=== PATIENT | female | born 2000 | race Caucasian/White ===

== ENCOUNTER 2019-06-25 14:30 | Emergency (ER) | payer OTHER, SELFPAY ==
[2019-06-25 14:37] VITALS: BP 124/76; PULSE 94; RESP 18; TEMP 36.3; O2SAT 100
[2019-06-25 15:19] LABS: Add Urine Microscopic? NO; Appearance Urine Clear (Clear); Bilirubin Urine Negative (Negative); Blood Urine Negative (Negative); Color Urine Yellow (Yellow); Glucose Urine UA Negative (Negative); Ketones Urine Negative (Negative); Leukocyte Esterase Ur Negative LEU/UL (Negative); Nitrate Urine Negative (Negative); Protein Urine Negative (Negative); Specific Grav Ur 1.024 (1.001-1.035); Urobilinogen Urine Negative mg/dL (<2.0)
--- NOTE | 2019-06-25 15:46 | ED.ABDPAIN ---
HPI - Abdominal Pain General Chief Complaint: Abdominal Pain Stated Complaint: abdominal pain Time Seen by Provider: 06/25/19 15:03 Source: patient Mode of arrival: ambulatory Limitations: no limitations History of Present Illness HPI narrative: Patient is a 18-year-old female who presents with abdominal bloating that is been present now for the last 2 days noting mild discomfort throughout the abdomen denies any fever chills nausea vomiting or other complaints and on arrival is resting comfortably in the room in no distress patient has not taken anything for her symptoms nor does she denies similar occurrence in the past. Related Data Allergies Allergy/AdvReac Type Severity Reaction Status Date / Time ceftriaxone [From Rocephin] Allergy Rash Verified 06/25/19 15:05 Cephalosporins Allergy Rash Verified 06/25/19 15:05 Review of Systems Review of Systems: All systems reviewed & are unremarkable except as noted in HPI and below PMFSH Social History Social History Gender identity (if verbalized by the patient): Female Exam Narrative: Exam Narrative: GENERAL: Well-appearing, well-nourished, and in no acute distress. HEAD: Normocephalic, atraumatic. EYES: PERRLA and EOMI. ENT: Nares clear, no rhinorrhea or epistaxis. Mucous membranes moist. CHEST: Clear to auscultation. No respiratory distress. No wheezes rales or rhonchi HEART: Regular rate and rhythm. No murmur heard. Normal peripheral pulses. ABDOMEN: Soft, suprapubic tenderness to palpation no rebound or guarding, nondistended EXTREMITIES: Normal range of motion. No edema. SKIN: Warm, dry, no rash. NEURO: No focal deficits. Alert and oriented x3. PSYCH: Normal mood and affect. Course Course Emergency Course: Patient in the room in no distress afebrile nontoxic-appearing without emesis felt appropriate for trial of outpatient medications provided with strict reasons to return Vital Signs Vital signs: Vital Signs Temperature 97.3 F L 06/25/19 14:37 Pulse Rate 94 06/25/19 14:37 Respiratory Rate 18 06/25/19 14:37 Blood Pressure 124/76 06/25/19 14:37 Pulse Oximetry 100 06/25/19 14:37 Temperature 97.3 F L 06/25/19 14:37 Pulse Rate 94 06/25/19 14:37 Respiratory Rate 18 06/25/19 14:37 Blood Pressure 124/76 06/25/19 14:37 Pulse Oximetry 100 06/25/19 14:37 MDM - Abdominal Pain MDM Narrative Medical decision making narrative: Patient in the room in no distress afebrile nontoxic-appearing no emesis felt appropriate for outpatient reevaluation agreeing to follow-up as directed or to return if symptoms worsen or concerns Lab Data Result diagrams: 06/25/19 15:34 06/25/19 15:34 Labs: Lab Results 06/25/19 06/25/19 06/25/19 Range/Units 15:08 15:34 15:34 WBC 10.2 H (4.5-10.0) K/mm3 RBC 4.80 (4.2-5.4) M/mm3 Hgb 14.6 (12.0-15.0) g/dL Hct 43.5 (37.0-47.0) % MCV 90.6 (80-100) fl MCH 30.4 (26-34) pg MCHC 33.6 (32-36) g/dl RDW 11.9 (11.5-14.5) % Plt Count 419 H (150-375) k/mm3 MPV 9.8 (7.4-10.4) fl Immature Gran % (Auto) 0.3 (0-0.5) % Neut % (Auto) 64.1 (45.5-73.1) % Lymph % (Auto) 26.9 (18.3-44.2) % Wolfe % (Auto) 6.3 (2.6-8.5) % Eos % (Auto) 1.9 (0-4.4) % Baso % (Auto) 0.5 (0.2-1.2) % Lymph # (Auto) 2.73 (0.9-3.2) K/mm3 Wolfe # (Auto) 0.6 (0.1-0.6) K/mm3 Eos # (Auto) 0.2 (0-0.3) K/mm3 Baso # (Auto) 0.1 (0.0-0.1) K/mm3 Abs Immat Gran (auto) 0.03 (0.00-0.031) K/mm3 Absolute Neuts (auto) 6.5 (1.3-6.7) K/mm3 Absolute Nucleated RBC 0.0 (0.0-0.012) K/mm3 Nucleated RBC % 0.0 (0.0-0.2) % Sodium 138 (137-145) mmol/L Potassium 4.3 (3.4-5.0) mmol/L Chloride 104 (98-107) mmol/L Carbon Dioxide 25 (22-30) mmol/L BUN 12 (7-17) mg/dL Creatinine 0.50 L (0.7-1.0) mg/dL Estim Creat Clear Calc 128 ml/min Estimated GFR
[2019-06-25 15:50] LABS: Basophils Absolute Auto 0.1 K/mm3 (0.0-0.1); Basophils Percent Auto 0.5 % (0.2-1.2); Eosinophils Absolute Auto 0.2 K/mm3 (0-0.3); Eosinophils Percent Auto 1.9 % (0-4.4); Hematocrit 43.5 % (37.0-47.0); Hemoglobin 14.6 g/dL (12.0-15.0); Immature Granulocyte Absolute 0.03 K/mm3 (0.00-0.031); Immature Granulocyte Percent A 0.3 % (0-0.5); Lymphocytes Absolute Auto 2.73 K/mm3 (0.9-3.2); Lymphocytes Percent Auto 26.9 % (18.3-44.2); Mean Corpuscular HGB Conc 33.6 g/dl (32-36); Mean Corpuscular Hemoglobin 30.4 pg (26-34); Mean Corpuscular Volume 90.6 fl (80-100); Mean Platelet Volume 9.8 fl (7.4-10.4); Monocytes Absolute Auto 0.6 K/mm3 (0.1-0.6); Monocytes Percent Auto 6.3 % (2.6-8.5); Neutrophils Absolute Auto 6.5 K/mm3 (1.3-6.7); Neutrophils Percent Auto 64.1 % (45.5-73.1); Platelet Count Result 419 k/mm3 (150-375); Red Cell Distribution Width 11.9 % (11.5-14.5); White Blood Count 10.2 K/mm3 (4.5-10.0)
[2019-06-25 15:57] LABS: Alanine Aminotransferase 17 U/L (4-35); Albumin Level 4.8 g/dL (3.5-5.1); Alkaline Phosphatase 75 U/L (38-126); Aspartate Amino Transferase 22 U/L (14-36); Bilirubin,Total 0.6 mg/dL (0.2-1.3); Blood Urea Nitrogen 12 mg/dL (7-17); Calcium 9.2 mg/dL (8.4-10.2); Carbon Dioxide 25 mmol/L (22-30); Chloride 104 mmol/L (98-107); Estimated CRCL calculation 128 ml/min; Estimated Glomerular Filt Rate > 60; Glucose 82 mg/dL (65-105); Lipase 78 U/L (23-300); Potassium 4.3 mmol/L (3.4-5.0); Sodium 138 mmol/L (137-145)
== END 2019-06-25 16:44 | disposition home or self-care (01) ==
PROVIDERS: Emergency Medicine Emergency Medical Services; Emergency Provider Emergency Medicine
DX: R10.30 Lower abdominal pain, unspecified (principal)
CPT/HCPCS: 36415; 80053; 81003; 81025; 83690; 85025; 99283

== ENCOUNTER 2019-09-27 01:36 | Emergency (ER) | payer OTHER, SELFPAY ==
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
[2019-09-27 01:44] VITALS: BP 132/74; PULSE 88; RESP 17; TEMP 36.5; O2SAT 98
[2019-09-27 02:44] LABS: Basophils Absolute Auto 0.1 K/mm3 (0.0-0.1); Basophils Percent Auto 0.4 % (0.2-1.2); Eosinophils Absolute Auto 0.2 K/mm3 (0-0.3); Eosinophils Percent Auto 1.3 % (0-4.4); Hematocrit 39.4 % (37.0-47.0); Hemoglobin 13.6 g/dL (12.0-15.0); Immature Granulocyte Absolute 0.05 K/mm3 (0.00-0.031); Immature Granulocyte Percent A 0.4 % (0-0.5); Lymphocytes Percent Auto 27.1 % (18.3-44.2); Mean Corpuscular HGB Conc 34.5 g/dl (32-36); Mean Corpuscular Hemoglobin 30.6 pg (26-34); Mean Corpuscular Volume 88.7 fl (80-100); Mean Platelet Volume 9.7 fl (7.4-10.4); Monocytes Absolute Auto 0.9 K/mm3 (0.1-0.6); Monocytes Percent Auto 6.4 % (2.6-8.5); Neutrophils Absolute Auto 8.8 K/mm3 (1.3-6.7); Neutrophils Percent Auto 64.4 % (45.5-73.1); Platelet Count Result 360 k/mm3 (150-375); Red Blood Count 4.44 M/mm3 (4.2-5.4); Red Cell Distribution Width 12.3 % (11.5-14.5); White Blood Count 13.7 K/mm3 (4.5-10.0)
[2019-09-27 02:56] LABS: Alanine Aminotransferase 18 U/L (4-35); Albumin Level 4.5 g/dL (3.5-5.1); Alkaline Phosphatase 86 U/L (38-126); Aspartate Amino Transferase 22 U/L (14-36); Bilirubin,Total 0.4 mg/dL (0.2-1.3); Blood Urea Nitrogen 15 mg/dL (7-17); Calcium 9.1 mg/dL (8.4-10.2); Carbon Dioxide 27 mmol/L (22-30); Chloride 104 mmol/L (98-107); Estimated CRCL calculation 95 ml/min; Estimated Glomerular Filt Rate > 60; Glucose 101 mg/dL (65-105); Lipase 78 U/L (23-300); Potassium 3.8 mmol/L (3.4-5.0); Sodium 138 mmol/L (137-145)
[2019-09-27 03:08] LABS: Add Urine Microscopic? YES; Appearance Urine Cloudy (Clear); Bilirubin Urine Negative (Negative); Blood Urine 3+ (Negative); Color Urine Yellow (Yellow); Glucose Urine UA Negative (Negative); Ketones Urine Negative (Negative); Leukocyte Esterase Ur 3+ LEU/UL (Negative); Mucus Urine Rare /lpf; Nitrate Urine Negative (Negative); Protein Urine Negative (Negative); Specific Grav Ur 1.025 (1.001-1.035); Squamous Epithelial Cell Urine Few /hpf (Few); Urobilinogen Urine Negative mg/dL (<2.0); WBC Urine >75 /hpf
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
[2019-09-27 03:55] VITALS: BP 129/63; PULSE 74; RESP 16; TEMP 36.6; O2SAT 99
== END 2019-09-27 03:57 | disposition home or self-care (01) ==
PROVIDERS: Emergency Provider Emergency Medicine
DX: N39.0 Urinary tract infection, site not specified (principal); S30.811A Abrasion of abdominal wall, initial encounter; V47.0XXA Car driver injured in collision with fixed or stationary object in nontraffic accident, initial encounter
CPT/HCPCS: 36415; 74177; 80053; 81001; 81025; 83690; 85025; 87086; 87088; 99284; Q9967

== ENCOUNTER 2020-08-18 22:26 | Emergency (ER) | payer OTHER, SELFPAY ==
[2020-08-18 22:37] VITALS: BP 135/84; PULSE 78; RESP 18; TEMP 36.4; O2SAT 100
--- NOTE | 2020-08-18 23:38 | PC.NURSE ---
Pt ambulatory to ED c/o burning and frequency c urination. also c/o lynch and dizziness that is fairly constant. has IUD - paraguard in place. c/o vaginal cramping as well. has scullion chief but has not talked to them about symptoms/concerns.
[2020-08-18 23:44] LABS: Glucose Point of Care 77 (65-105)
[2020-08-18 23:47] LABS: Add Urine Microscopic? YES; Appearance Urine Cloudy (Clear); Bacteria Urine Trace /hpf; Bilirubin Urine Negative (Negative); Blood Urine Negative (Negative); Color Urine Straw (Yellow); Glucose Urine UA Negative (Negative); Ketones Urine Negative (Negative); Leukocyte Esterase Ur 1+ LEU/UL (Negative); Mucus Urine Rare /lpf; Nitrate Urine Negative (Negative); Protein Urine 2+ mg/dL (Negative); Squamous Epithelial Cell Urine Few /hpf (Few); Urobilinogen Urine Negative mg/dL (<2.0); WBC Urine 21-30 /hpf
--- NOTE | 2020-08-19 00:02 | ED.GENADULT ---
HPI - General Adult General Chief complaint: Urogenital-Female Stated complaint: possible UTI, headache Time Seen by Provider: 08/18/20 23:32 History of Present Illness HPI narrative: Patient 27-year-old female who presents emerged from with chief complaint of dysuria. Patient reports for the last several days has had burning frequency with urination. Patient also reports she has had a headache reports this feels unwell. Patient states that she has not had any nausea or vomiting fevers. Patient states she had some cramping throughout the abdomen and in her flank area. Related Data Allergies Allergy/AdvReac Type Severity Reaction Status Date / Time ceftriaxone [From Rocephin] Allergy Rash Verified 08/18/20 22:40 Cephalosporins Allergy Rash Verified 08/18/20 22:40 Review of Systems Review of Systems: Narrative: A 10 system review of systems was completed on the patient and is negative except for what is stated in the HPI. Nursing and ancillary documentation was reviewed. PMFSH Past Medical History Medical History Healthy female adult Surgical History Surgical History No pertinent past surgical history Social History Social History Smoking status: Never smoker Gender identity (if verbalized by the patient): Female Exam Narrative: Exam Narrative: GENERAL: Well-appearing, well-nourished, and in no acute distress. HEAD: Normocephalic, atraumatic. EYES: PERRLA and EOMI. ENT: Nares clear, no rhinorrhea or epistaxis. Mucous membranes moist. NECK: Supple. CHEST: Clear to auscultation. No respiratory distress. HEART: Regular rate and rhythm. No murmur heard. Normal peripheral pulses. ABDOMEN: Soft, nontender, nondistended, normal active bowel sounds. EXTREMITIES: Normal range of motion. No edema. SKIN: Warm, dry, no rash. NEURO: No focal deficits. Alert and oriented x3. PSYCH: Normal mood and affect. Course Vital Signs Vital signs: Vital Signs Temperature 36.4 C L 08/18/20 22:37 Pulse Rate 78 08/18/20 22:37 Respiratory Rate 18 08/18/20 22:37 Blood Pressure 135/84 08/18/20 22:37 Pulse Oximetry 100 08/18/20 22:37 Temperature 36.4 C L 08/18/20 22:37 Pulse Rate 78 08/18/20 22:37 Respiratory Rate 18 08/18/20 22:37 Blood Pressure 135/84 08/18/20 22:37 Pulse Oximetry 100 08/18/20 22:37 Medical Decision Making Vital Signs Vital Signs: Vital Signs Temperature 36.4 C L 08/18/20 22:37 Pulse Rate 78 08/18/20 22:37 Respiratory Rate 18 08/18/20 22:37 Blood Pressure 135/84 08/18/20 22:37 Pulse Oximetry 100 08/18/20 22:37 Temperature 36.4 C L 08/18/20 22:37 Pulse Rate 78 08/18/20 22:37 Respiratory Rate 18 08/18/20 22:37 Blood Pressure 135/84 08/18/20 22:37 Pulse Oximetry 100 08/18/20 22:37 Lab Data Labs: Lab Results 08/18/20 08/18/20 Range/Units 23:31 23:41 POC Capillary Glucose 77 (65-105) mg/dl Urine Color Straw (Yellow) Urine Appearance Cloudy H (Clear) Urine pH 7.0 (5.0-9.0) Ur Specific [place] 1.010 (1.001-1.035) Urine Protein 2+ H (Negative) mg/dL Urine Glucose (UA) Negative (Negative) mg/dL Urine Ketones Negative (Negative) mg/dL Ur Blood (Man) Negative (Negative) Urine Nitrate Negative (Negative) Urine Bilirubin Negative (Negative) Urine Urobilinogen Negative (<2.0) mg/dL Leukocyte Esterase Rfl 1+ H (Negative) JAY/UL Urine RBC 3-5 H (0-2) /hpf Urine WBC 21-30 H /hpf Ur Squamous Epith Cells Few (Few) /hpf Urine Bacteria Trace /hpf Urine Mucus Rare /lpf UCG Bedside Result Negative Reference Range: Negative Urine Characteristics Clear Dis
[2020-08-19 00:25] VITALS: BP 125/87; PULSE 82; RESP 20; O2SAT 100
== END 2020-08-19 00:26 | disposition home or self-care (01) ==
PROVIDERS: Emergency Provider Emergency Medicine
DX: N39.0 Urinary tract infection, site not specified (principal)
CPT/HCPCS: 81001; 81025; 82948; 87077; 87086; 87088; 99283

== ENCOUNTER 2023-06-20 15:25 | Emergency (ER) | payer OTHER, SELFPAY ==
[2023-06-20 15:47] VITALS: BP 132/88; PULSE 138; RESP 19; TEMP 36.7; O2SAT 100
--- NOTE | 2023-06-20 15:51 | ED.URI ---
HPI - URI/Sore Throat General Chief Complaint: Upper Respiratory Infection Stated Complaint: fever, sore throat Time Seen by Provider: 06/20/23 15:50 History of Present Illness HPI Narrative: Patient is a healthy 22-year-old female here with nasal congestion and sore throat. She states her symptoms began yesterday. She has been using ibuprofen [id number] for symptoms, last dose taken this morning. She denies any urinary symptoms, shortness of breath, cough. She has pain with swallowing but no difficulty breathing or swallowing. Her daughter is sick with strep pharyngitis and believes that maybe she got strep throat from her older daughter. She is also here with her younger daughter for similar symptoms. Related Data Allergies Allergy/AdvReac Type Severity Reaction Status Date / Time ceftriaxone [From Rocephin] Allergy Rash Verified 08/18/20 22:40 Cephalosporins Allergy Rash Verified 08/18/20 22:40 Review of Systems Review of Systems: All systems reviewed & are unremarkable except as noted in HPI and below PMFSH Past Medical History Medical History Healthy female adult Surgical History Surgical History No pertinent past surgical history Social History Social History Smoking status: Never smoker Gender identity (if verbalized by the patient): Female Exam Narrative: GENERAL: Well-appearing, well-nourished, and in no acute distress. HEAD: Normocephalic, atraumatic. EYES: PERRLA and EOMI. ENT: Nares clear. Mucous membranes moist. Erythema in the posterior pharynx with mild bilateral exudates, mild tonsillar swelling bilaterally. NECK: Supple. No lymphadenopathy CHEST: Clear to auscultation. No respiratory distress. HEART: Tachycardic. Normal peripheral pulses. ABDOMEN: Soft, nontender, nondistended. EXTREMITIES: Normal range of motion. No edema. SKIN: Warm, dry, no rash. NEURO: No focal deficits. Alert and oriented x3. PSYCH: Normal mood and affect. Course Course Emergency Course: Chart review performed. Patient here with respiratory infection. Triage vitals show tachycardia, otherwise normal. She has had a couple of visits in the past few years for abdominal pain, UTI. Patient seen evaluated, nontoxic appearing. Alert, oriented. Concern for viral syndrome versus strep pharyngitis. Viral swab, strep swab, test ordered. Will give Tylenol and Decadron for symptom relief. Will push oral hydration and recheck HR. Patient positive for strep, she has cephalosporin allergy, will start on azithromycin. She has downtrending HR to 125, will do additional oral fluids and reevaluate. Anticipate some of her continued tachycardia is anxiety over the fact that her daughter is being transferred to the [facility]. Will recheck heart rate after oral fluids. Patient's heart rate improved to 111. I did discuss that I would like to do additional hydration and watch her but longer in the emergency department however her daughter is currently being transferred to [facility] and she would like to leave. Advised continued hydration at home and continued antibiotic use. The results of pertinent diagnostic studies and exam findings were discussed. The patient?s provisional diagnosis and plan of care were discussed with the patient and present family. The patient and/or present family expressed understanding of the diagnosis and plan. The nurse was instructed to provide written instructions and appropriate follow-up information. The patient understands their need and responsibility to obtain additional follow-up as instructed. The risks of medications administered and prescribed were discussed with the patient and family present. Vital Signs Vital signs: Vital Signs Temperature 98.1 F 06/20/23 15:47 Pulse
[2023-06-20] MEDS: dexAMETHasone SOD PHOS INJ 10 MG/ML 1 ML VIAL BY MOUTH (16:58)
[2023-06-20] MEDS: ACETAMINOPHEN 325 MG TABLET 650 MG PO (16:58)
[2023-06-20 17:06] LABS: Strep Group A RT-PCR DETECTED (Negative)
[2023-06-20 17:18] LABS: Influenza A QL RT-PCR Negative (Negative); Influenza B QL RT-PCR Negative (Negative); RSV RNA, RT-PCR Negative (Negative); SARS-CoV-2 RNA PCR Negative (Negative)
[2023-06-20 17:31] VITALS: BP 136/92; PULSE 125; O2SAT 100
[2023-06-20 17:33] VITALS: O2SAT 97
[2023-06-20] MEDS: AZITHROMYCIN 250 MG TABLET 500 MG PO (18:25)
[2023-06-20 18:41] VITALS: BP 136/121; PULSE 124; RESP 18; O2SAT 100
[2023-06-20] MEDS: IBUPROFEN 600 MG TABLET PO (19:06)
[2023-06-20 19:09] VITALS: PULSE 111; RESP 19; O2SAT 100
[2023-06-20 19:14] VITALS: BP 141/87; PULSE 99; RESP 18; O2SAT 100
== END 2023-06-20 19:22 | disposition home or self-care (01) ==
PROVIDERS: Emergency Provider Student in an Organized Health Care Education/Training Program
DX: J02.0 Streptococcal pharyngitis (principal); Z20.822 Contact with and (suspected) exposure to COVID-19
CPT/HCPCS: 81025; 87637; 87651; 99283; A9270; J1100

== ENCOUNTER 2023-11-28 17:09 | Emergency (ER) | payer MEDICAID, SELFPAY ==
[2023-11-28 17:55] VITALS: BP 139/90; PULSE 99; RESP 15; TEMP 37.2; O2SAT 98
[2023-11-28 22:55] VITALS: BP 137/84; PULSE 92; RESP 19; TEMP 36.9; O2SAT 100
--- NOTE | 2023-11-29 01:48 | ED.SKABFB ---
HPI - Skin/Abscess/Foreign Bdy General Chief complaint: Skin/Abscess/Foreign Body Stated complaint: bump outside vagina Time Seen by Provider: 11/28/23 23:40 Source: patient Mode of arrival: ambulatory Limitations: no limitations History of Present Illness HPI narrative: patient is a 23-year-old female who presents the ED with report of an abnormal lump on her left labia. Patient reports she noticed a lump a few days ago, but states it has become increasingly painful. She has had similar lumps in the past, but states they have not typically been this painful. She has not taken anything for the pain. She is currently , approximately [address] Gan. Has appt in early December. patient states the raised area has been draining clear fluid. She denies any fevers. Denies abdominal pain or vaginal bleeding. Related Data Allergies Allergy/AdvReac Type Severity Reaction Status Date / Time ceftriaxone [From Rocephin] Allergy Rash Verified 08/18/20 22:40 Cephalosporins Allergy Rash Verified 08/18/20 22:40 Review of Systems Review of Systems: All systems reviewed & are unremarkable except as noted in HPI. All systems reviewed & are unremarkable except as noted in HPI and below PMFSH Past Medical History Medical History Healthy female adult Surgical History Surgical History No pertinent past surgical history Social History Social History Smoking status: Never smoker Gender identity (if verbalized by the patient): Female Exam Narrative: GENERAL: Well appearing, well-nourished, non-toxic, in no acute distress. HEAD: Normocephalic, atraumatic. RESPIRATORY: Airway patent, respirations nonlabored CARDIOVASCULAR: Regular rate and rhythm PELVIC: Raised erythematous area to left labial majora, with cluster of small ulcers. A few of the ulcers have been scabbed over. Focal TTP. No fluctuance or surrounding induration/erythema. Remainder of external genitalia is unremarkable. MUSCULOSKELETAL: Moves all extremities. No gross deformities. SKIN: Warm, dry, normal color. NEURO: A&O X3. Speech clear. PSYCHIATRIC: Appropriate mood and affect. Normal interaction. Course Vital Signs Vital signs: Vital Signs Temperature 99.0 F 11/28/23 17:55 Pulse Rate 99 11/28/23 17:55 Respiratory Rate 15 11/28/23 17:55 Blood Pressure 139/90 11/28/23 17:55 Pulse Oximetry 98 11/28/23 17:55 Temperature 98.1 F 11/29/23 02:36 Pulse Rate 90 11/29/23 02:36 Respiratory Rate 18 11/29/23 02:36 Blood Pressure 132/79 11/29/23 02:36 Pulse Oximetry 99 11/29/23 02:36 MDM - Skin/Abscess/Foreign Bdy MDM Narrative Medical decision making narrative: exam consistent with genital herpes. No evidence of abscess. I did utilize bedside ultrasound to ensure no superficial fluid collection. Bedside ultrasound was also utilized to visualize baby. Positive movement with positive heart flicker. Patient does report history of genital HSV. She has previously been on antiviral therapy with her previous pregnancies. Will start patient on valacyclovir. Discussed pain management, Sitz bath, Tylenol, ice pack. Advised close follow-up with OBGYN for further evaluation. She was given return precautions and voiced understanding. In agreement with plan. Discharged in stable condition. Medical Records Attestation: I reviewed the patient's medical records. Discharge Plan Discharge Clinical Impression: Genital herpes affecting in first trimester, 8 weeks gestation of Patient Disposition: Home, Self-Care Condition: Stable Instructions: Antibiotic Form, Genital Herpes Infection (ED), Sitz Bath (DC), at 7 to 10 Weeks (ED) Additional Instructions: Take
[2023-11-29 02:36] VITALS: BP 132/79; PULSE 90; RESP 18; TEMP 36.7; O2SAT 99
== END 2023-11-29 02:38 | disposition home or self-care (01) ==
PROVIDERS: Emergency Provider Physician Assistant
DX: O98.511 Other viral diseases complicating pregnancy, first trimester (principal); A60.04 Herpesviral vulvovaginitis; Z3A.08 8 weeks gestation of pregnancy
CPT/HCPCS: 99283

== ENCOUNTER 2024-03-11 23:20 | Observation (INO) | payer MEDICAID, SELFPAY ==
[2024-03-11 23:49] VITALS: BP 130/77; PULSE 69; O2SAT 99
[2024-03-11 23:54] VITALS: PULSE 70; O2SAT 100
[2024-03-11 23:59] VITALS: PULSE 67; O2SAT 98
[2024-03-12] VITALS (18 sets, daily range): BP systolic 121–133; BP diastolic 71–82; PULSE 66–91; TEMP 36.6; O2SAT 96–100; BMI 35.3
--- NOTE | 2024-03-12 00:05 | OBADM ---
This patient, Nitza Jason, admitted to the OB room OB Post 116 for observation. Patient/family oriented to hospital policies and general routines including ID bracelet, bed and alarms, visiting hours, pain management, procedures, bathroom and other care routines, personal items, smoking policy, room service/diet, and visiting hours. Patient/Family are encouraged to report perceived risks to care and to ask questions if they do not understand what they are told or what they should do.
[2024-03-12 00:09] LABS: Add Urine Microscopic? NO; Appearance Urine Clear (Clear); Bilirubin Urine Negative (Negative); Blood Urine Negative (Negative); Color Urine Yellow (Yellow); Glucose Urine UA Negative (Negative); Ketones Urine Negative (Negative); Leukocyte Esterase Ur Negative LEU/UL (Negative); Nitrate Urine Negative (Negative); Protein Urine Negative (Negative); Specific Grav Ur 1.012 (1.001-1.035); Urobilinogen Urine 0.2 mg/dL (<2.0)
== END 2024-03-12 01:17 | disposition home or self-care (01) ==
PROVIDERS: Admitting Provider Obstetrics & Gynecology; Visit Provider Obstetrics & Gynecology
DX: O26.892 Other specified pregnancy related conditions, second trimester (principal); R10.9 Unspecified abdominal pain; Z3A.23 23 weeks gestation of pregnancy
CPT/HCPCS: 59025; 81003; G0378; G0379

== ENCOUNTER 2024-04-19 08:48 | Outpatient (RCR) | payer OTHER, SELFPAY ==
[2024-04-18 13:49] LABS: Hematocrit 35.5 % (37.0-47.0); Hemoglobin 11.8 g/dL (12.0-15.0)
[2024-04-18 14:01] LABS: Glucose 1 Hour PP 50gm Dose 149 mg/dL
[2024-04-18 14:41] LABS: HIV 1/2 Ab P24 Ag Result Negative (Negative)
[2024-04-19] MEDS: RHO(D) IMMUNE GLOBULIN 300 MCG/2 ML SYRINGE IM (10:17)
== END 2024-04-19 09:00 | disposition home or self-care (01) ==
LOC: ANHLAB 08:48
PROVIDERS: Visit Provider Obstetrics & Gynecology
DX: Z11.4 Encounter for screening for human immunodeficiency virus [HIV] (principal); Z11.3 Encounter for screening for infections with a predominantly sexual mode of transmission; Z29.13 Encounter for prophylactic Rho(D) immune globulin; O36.0130 Maternal care for anti-D [Rh] antibodies, third trimester, not applicable or unspecified; Z3A.00 Weeks of gestation of pregnancy not specified
CPT/HCPCS: 36415; 82947; 85014; 85018; 85461; 86703; 86850; 86900; 86901; 90384; 96372; G0432; J2790

== ENCOUNTER 2024-05-28 14:36 | Outpatient (CLI) | payer OTHER, SELFPAY ==
[2024-05-28] VITALS (7 sets, daily range): BP systolic 124–136; BP diastolic 80–89; PULSE 84–101; RESP 18; TEMP 37.2; BMI 39.2
--- OUTSIDE RECORDS SUMMARY | 2024-05-28 14:42 | XMS_ITS | CONTINUITY OF CARE DOCUMENT ---
Author Name mojgan ulrich Address Unknown Organization [facility] Address [address] [place] [address] Phone [phone] Care Team Providers Care Surgical Nurse Practitioner Name Role Phone Darrell NATARAJAN, Constantin Unavailable JL IVY MD Unavailable JL IVY MD Unavailable [phone] INSURANCE PROVIDERS Payer name Policy type / Coverage type Juan red [employer] party ID [employer] MEDICAID (2) Medicaid [id number]
--- OUTSIDE RECORDS SUMMARY | 2024-05-28 14:42 | XMS_ITS | Clinical Summary ---
Author Organization [facility] Address [address] [place] [address] Care Team Providers Care Glue Specialty Supervisor Name Role Phone Unavailable Primary Care Provider Unavailabl e Source Comments [facility],non-owned Affiliates and Associated Physician Practices is amultiple site organization consisting of ambulatory clinics and hospital sitesin [place], [place], [place] and [place]. This disclosure is being madepursuant to the Care Everywhere program and may not contain all information available regarding this patient. Last updated 17.[facility] Allergies Active Allergy Reactions Criticality Noted Date Comments Cephalosporins Rash Medium 07/07/2019 Ceftriaxone Rash Medium 12/22/2017 Medications * Be aware that medications may not be up to date on this document. Alwaysverify current medications with the patient. Medication Sig Dispensed Refills Start Date End Date Status montelukast (SINGULAIR) 10 MG tablet Take 10 mg by mouth at bedtime Active acyclovir (ZOVIRAX) 800 MG tablet Take 800 mg by mouth once daily Active methylPREDNISolone (MEDROL DOSEPAK) 4 MG tablet Take by mouth as directed 1 Each 07/07/2019 Active Active Problems Problem Noted Date Diagnosed Date Poor growth affecting management of mother in third trimester 08/27/2018 Social History Tobacco Use Types Packs/Day Years Used Date Smoking Tobacco: Passive Smo ke Exposure - Never Smoker Smokeless Tobacco: Never Sex and Gender Information Value Date Recorded Sex Assigned at Not on file Gender Identity Not on file Sexual Orientation Not on file Last Filed Vital Signs Vital Sign Reading Time Taken Comments Blood Pressure 127/77 09/21/2018 2:34 PM CDT Pulse 96 07/07/2019 2:27 PM CDT Temperature 37.1 C (98.7 F) 07/07/2019 2:27 PM CDT Respiratory Rate 18 07/07/2019 2:27 PM CDT Oxygen Saturation 98% 07/07/2019 2:27 PM CDT Inhaled Oxygen Concentration - - Weight 62.6 kg (138 lb) 07/07/2019 2:27 PM CDT Height 153.7 cm (5' 0.5 ) 07/07/2019 2:27 PM CDT Body Mass Index 26.51 07/07/2019 2:27 PM CDT Plan of Treatment Health Maintenance Due Date Last Done Comments PAP SMEAR 2000 HIV SCREENING 2013 HPV VACCINE (1 - 3-dose series) 2013 CHLAMYDIA/GONORRHEA SCREENING 2014 HEPATITIS C SCREENING 10/06/2016 DTAP/TDAP/TD VACCINES (1 - Tdap) 2017 HEPATITIS B VACCINE (1 of 3 - 19+ 3-dose series) 2017 COVID-19 VACCINE ( - 2023-2 5 season) 2023 INFLUENZA VACCINE (#1) 2023 DEPRESSION SCREENING 04/06/2024 ZOSTER VACCINE (1 of 2) 2048 HIB VACCINE Aged Out No longer eligi ble based on patient's age to complete this topic MENINGOCOCCAL (Group B) VACCINE Aged Out No longer eligible based on patient's age to complete this topic MENINGOCOCCAL VACCINE Aged Out No adalberto danie eligible based on patient's age to complete this topic PNEUMOCOCCAL VACCINE Aged Out No long er eligible based on patient's age to complete this topic CASIENITZA Personal/Family [address] [place] [id number] Casie Nitza Personal/Family Self [address] [place] [id number]
--- OUTSIDE RECORDS SUMMARY | 2024-05-28 14:42 | XMS_ITS | Data Portability ---
Author Organization [facility] [place] Address [address] [place] [place] [place] [address] Assessment Encounter Date Assessment Date Assessment LastModified by Organization Details LastModified Time 05/05/2024 05/05/2024 Patient is ___weeks . Discussed plan. Not available 05/05/2024 12:35:22 05/12/2024 05/12/2024 Patient is ___weeks . Discussed plan. Not available 05/12/2024 12:57:57 05/26/2024 05/26/2024 Patient is ___weeks . Discussed plan. Not available 05/26/2024 11:28:03 Plan of Treatment Reminders Order Date Submit Date Provider Last Modified By Organization Details Last Modified Time Details Appointments U/S OB GROWTH 2024 11:00A M ULTRASOUND Not available Not available Not available OB ROUTINE 2024 11:45A M Ale CLOUD MD Not available Not available Not available Lab None recorde d. Referral None recorde d. Procedures None recorde d. Surgeries None recorde d. Imaging US, obstetr ic, follow- up 2024 025 [email or web address] [place], [address], [address], [place], [address], 05/12/2024 19:35:34 Medication Orders None recorde d. Patient TargetsNo targets recorded. Patient InstructionsNo instructions recorded. Reason for Referral None Reported. Results Created Date Observation Date Name Description Value Unit Range Abnormal Flag Note LastModifiedBy Organization Detail LastModifiedTime 04/21/19 25 04/21/2024 GTT - GESTA JESUS L, 3 HOUR, ACOG glucose, fasting acog 81 mg/dL 70-94 Not Available [facility] (Lab) [address] [place], [address], 04/22/2024 13:19:52 04/21/19 25 04/21/2024 GTT - GESTA JESUS L, 3 HOUR, ACOG glucose, 1 hour acog 162 mg/dL 70-179 Not Available [facility] (Lab) [address] [place], [address], 04/22/2024 13:19:52 04/21/19 25 04/21/2024 GTT - GESTA JESUS L, 3 HOUR, ACOG glucose, 2 hour acog 136 mg/dL 70-154 Not Available [facility] (Lab) [address] [place], [address], 04/22/2024 13:19:52 04/21/19 25 04/21/2024 GTT - GESTA JESUS L, 3 HOUR, ACOG glucose, 3 hour acog 77 mg/dL 70-139 Not Available [facility] (Lab) [address] [place], [address], 04/22/2024 13:19:52 04/21/19 25 04/21/2024 RPR SCREE N, REFLE X TITER /CONF IRMAT ION RPR screen Nonrea ctive nonrea ctive Not Available [facility] (Lab) [address] [place], [address], 04/22/2024 13:19:52 05/12/19 25 05/12/2024 US, luis f perezo w-up No observ ation record ed. [email or web address] [address], [facility], [place], [address], 05/12/2024 18:42:35 05/12/19 25 05/12/2024 US, obste tric, follo w-up No observ ation record ed. [email or web address] [place] [address], [place], [address], 05/12/2024 18:35:54 Result Notes None recorded. Problems Name Problem SNOMED Code Status Onset Date Resolution Date Notes Provider Name and Address Organization Details Recorded Time 07218357 Active 2023 Sandy Wu stacey, [facility] 4 13:20:57 Herpes simplex 90329794 Active outbreak at 8 weeks gestation in this pregancy, patient is on supressiv e therapy, acyclovir 1000 Antolin Cloud MD [address], [place], [address], [facility] 4 13:31:34 growth restricti on 75593618 Active previous pregnacy Antolin Cloud MD [address], [place], [address], [facility] 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 4 16:52:33 Palpitati ons 57071006 Active Antolin Cloud MD [address], [place], [address], [facility] 4 12:49:18 Postpartu m depressio n 87016883 Active H/O Antolin Cloud MD [address], [place], [address], [facility] 4 12:49:46 Placenta circumval remi 7010764 Active Antolin Cloud MD [address], [place], [address], [facility] 4 13:10:24 Asthma 913361918 Active Antolin Cloud MD [address], [place], [address], [place] [facility] 13:06:41 Problem Notes None recorded. Procedures Surgical History Date Name Laterality Status Provider Name and Address Organization Details Recorded Time 01/04/2024 Date of Last Pap Smear completed Leny Espinoza [facility] 02/22/2024 12:44:22 Imaging Results Imaging Date Name Status LastModified by Organiz ation Details LastModified Time 05/12/2024 US, obstetric, follow-up active [email or web address] [address], [place], [address], 05/12/2024 18:42:35 05/12/2024 US, obstetric, follow-up completed [email or web address] [place] [address], [place], [address], 05/12/2024 18:35:54 Procedure Notes None recorded. Medical Equipment None Reported. Allergies Allergen ID Allergen Name Allergen Category Reaction Reaction Severity Criticality Documentation Date Start Date Code Code System Note Provider Name and Address Organization Details Recorded Time 33948 Product containin g cephalosp rebeca (product) medicatio n rash Not available Not available 01/04/2024 81919 9009 SNOMED Naima Ashley ibarra, [facility] 12:50:18 Medications Name Sig Start Date Stop Date Status Note LastModified by Organization Details LastModified Time amitriptyli ne 75 mg tablet TAKE 1 TABLET BY MOUTH EVERY DAY 01/03 completed Not Available Not Available Not Available valacyclovi r 1 gram tablet TAKE 1 TABLET BY MOUTH EVERY 12 HOURS active Not Available Not Available No t Available omeprazole 40 mg capsule,del ayed release TAKE 1 CAPSULE BY MOUTH EVERY DAY active Not Available Not Available No t Available amitriptyli ne 50 mg tablet TAKE 1 TABLET BY MOUTH EVERY DAY 01/03 completed Not Available Not Available Not Available Macrobid 100 mg capsule take 1 twice a day 04/18 /2025 completed Not Available Not Available Not Available amitriptyli ne 25 mg tablet TAKE 1 TABLET BY MOUTH EVERY DAY AT BEDTIME 01/03 completed Not Available Not Available Not Available albuterol sulfate HFA 90 mcg/actuati on aerosol inhaler Inhale 2 puffs every 4 hours by inhalatio n route. active Not Available Not Available No t Available azithromyci n 500 mg tablet TAKE 1 TABLET BY MOUTH EVERY DAY 01/03 completed Not Available Not Available Not Available iron active Not Available Not Availa ble Not Available active Not Available Not Avai lable Not Available Vitals Date Recorded Body weight Systolic blood pressure Diastolic blood pressure Provider Name and Address Organization Details Last Updated DateTime 05/05/2024 15391.5121 5 g 125 mm[Hg] 85 mm[Hg] [facility] 05/05/2024 12:36:11 Date Recorded Body weight Systolic blood pressure Diastolic blood pressure Provider Name and Address Organization Details Last Updated DateTime 05/12/2024 51827.5121 5 g 128 mm[Hg] 86 mm[Hg] [facility] 05/12/2024 12:58:35 Date Recorded Body weight Systolic blood pressure Diastolic blood pressure Provider Name and Address Organization Details Last Updated DateTime 05/26/2024 56119.474 g 136 mm[Hg] 87 mm[Hg] [facility] 05/26/2024 11:28:38 Social History Question Answer Notes LastModified by Organizat ion Details LastModified Time What Is Your Level Of Alcohol Consumption? Occasional [email or web address] Information not available 01/04/2024 Are You Blind Or Do You Have Difficulty Seeing? No [email or web address] Information n ot available 01/04/2024 What Is Your Level Of Caffeine Consumption? Heavy [email or web address] Information not available 01/04/2024 How Much Tobacco Do You Chew? None [email or web address] Information not available 01/04/2024 In The 14 Days Before Symptom Onset, Have You Had Close Contact With A Laboratory-confirm ed COVID-19 While That Case Was Ill? No [email or web address] Information n ot available 01/04/2024 In The 14 Days Before Symptom Onset, Have You Had Close Contact With A Person Who Is Under Investigation For COVID-19 While That Person Was Ill? No [email or web address] Information not available 01/04/2024 Have You Been To An Area Known To Be High Risk For COVID-19? No [email or web address] Information not available 01/04/2024 Are You Deaf Or Do You Have Serious Difficulty Hearing? No [email or web address] Information not available 01/04/2024 What Type Of Diet Are You Following? REGULAR [email or web address] Information n ot available 01/04/2024 What Is The Highest Grade Or Level Of School You Have Completed Or The Highest Degree You Have Received? [id number] [email or web address] Information not available 01/04/2024 What Is Your Occupation? Unemployed [email or web address] Information not available 01/04/2024 Are There Any Guns Present In Your Home? No [email or web address] Information not available 01/04/2024 Do You Use Protection During Sex? No [email or web address] Information not available 01/04/2024 Do You Use Your Seat Belt Or Car Seat Routinely? Yes [email or web address] Information not available 01/04/2024 Do You Have Smoke And Carbon Monoxide Detectors In Your Home? Yes [email or web address] Information not available 01/04/2024 How Much Tobacco Do You Smoke? No Information not available 01/04/2024 Do You Feel Stressed (tense, Restless, Nervous, Or Anxious, Or Unable To Sleep At Night)? [id number] [email or web address] Information not available 01/04/2024 Do You Use Any Illicit Or Recreational Drugs? No [email or web address] Information not available 01/04/2024 Do You Use Sunscreen Routinely? Yes [email or web address] Information not available 01/04/2024 Have You Used IV Drugs? No [email or web address] Information not available 01/04/2024 Sex: Unknown Functional Status Question Answer Note LastModified by Organizat ion Details LastModified Time Are you able to walk? YESWOREST [email or web address] Information not available 01/04/2024 What is your exercise level? Occasional [email or web address] Information not available 01/04/2024 Mental Status None recorded. Family History Relationship Description Onset Age of this Age Resolved Age Notes LastModified by Organization Details LastModified Time Unspecified Relation Family history unknown [email or web address] Not available 2023 12:50:24 Medical History Condition Response Anxiety Disorder Y History of STI Y Depression/ depression Y Gynecological History Statement/Question Response Flow Moderate Date of LMP 10/01/2023 On BCP's at Conception? N N Was last menstrual period normal Y STIs/STDs Y HPV Vaccine Y Duration of Flow (days) 4 Current Control Method Age at First Child 17 Date of control 11/04/2018 Are cycles usually normal Y Frequency of Cycle (Q days) 28 Sexually Active? Y IUD Menses Monthly Y Age of first menstrual cycle 11 Date of Last Pap Smear 01/04/2024 Sexual Problems? N LMP Approximate N Obstetrics History GPAL:G 3 P 2 0 0 2 Type Value Full Term 2 Living 2 Total 3 Past Encounters Encounter ID Performer Location Encounter Start Date Encounter Closed Date Diagnosis/Indication Diagnosis SNOMED-CT Code Diagnosis ICD10 Code Diagnosis Note [id number] [facility] [address],[place] [address] 01/04/2024 11:49:02 01/04/2024 12:42:58 screening 201481730 Z36.82 Z3A.13 [id number] Antolin Cloud MD [place] [address],[place] [address] 01/04/2024 11:51:47 01/04/2024 13:50:17 Routine care 004061151 Z34.91 screening 2437 72656 Z36.89 Herpes simplex 95629733 B00.9 [id number] Antolin Cloud MD [place] [address],[place] [address] 01/26/2024 11:20:14 01/26/2024 12:54:57 Routine care 638368641 Z34.91 [id number] [facility] [address],[place] [address] 02/22/2024 10:47:23 02/22/2024 12:41:58 screening for malformation 409268143 Z36.3 Z3A.20 [id number] Antolin Cloud MD [place] [address],[place] [address] 02/22/2024 10:48:24 02/22/2024 14:35:31 Asthma 945286333 J45.909 Routine an tenatal care 906453163 Z34.91 [id number] MD Miki Cardoso [address],[place] [address] 03/21/2024 10:59:04 03/22/2024 07:01:38 Urinary symptoms 490554069 R39.9 Routine an tenatal care 964349391 Z34.91 [id number] Antolin Cloud MD [place] [address],[place] [address] 04/18/2024 11:21:17 04/18/2024 12:33:43 Gastroesophageal reflux disease 095480875 K21.9 Routine an tenatal care 429682226 Z34.91 [id number] Antolin Cloud MD [place] [address],[place] [address] 05/05/2024 11:52:32 05/05/2024 13:08:31 Routine care 512917643 Z34.91 [id number] [facility] [address],[place] [address] 05/12/2024 12:07:16 05/12/2024 14:35:35 Placenta circumvallata 8287752 O43.119 Z3A.32 [id number] Antolin Cloud MD [place] [address],[place] [address] 05/12/2024 12:07:59 05/12/2024 14:32:13 Routine care 533709247 Z34.91 [id number] MD Miki Cardoso [address],[place] [address] 05/26/2024 11:03:38 05/26/2024 20:38:33 [id number] MD Miki Cardoso [address],[place] [address] 05/26/2024 11:03:52 05/26/2024 12:28:27 Routine care 582718826 Z34.91 Health Concerns Section Related Observation LastModified by Organization Detai ls LastModified Time None Recorded Concern Status LastModified by Organization Details LastModified Time None Recorded Advance Directives Directive None Recorded Payers Encounter Date Sequence Insurance Name Policy Number Policy Balderas Covered Member ID Balderas Member ID Guarantor Name 05/05/2024 1 [facility] ON OR AFTER 10/04/20 (MEDICAID REPLACEMENT - HMO) Nitza Jason [id number] Nitza Jason 05/12/2024 1 [facility] ON OR AFTER 10/04/20 (MEDICAID REPLACEMENT - HMO) Nitzabernadette Jason [id number] Nitzabernadette Castillone 05/12/2024 1 [facility] ON OR AFTER 10/04/20 (MEDICAID REPLACEMENT - HMO) Nitzabernadette Jason [id number] Nitzabernadette Jason 05/26/2024 1 [facility] ON OR AFTER 10/04/20 (MEDICAID REPLACEMENT - HMO) Nitzabernadette Jason [id number] Nitzabernadette Jason 05/26/2024 1 [facility] ON OR AFTER 10/04/20 (MEDICAID REPLACEMENT - HMO) Nitza Jason [id number] Nitza Jason OBGyn Episode Ob Episode Information Episode Created Date Number of Fetuses Patient Bloodtype Patient rh Status Prepregnancy Weight lbs Domestic Partner Domestic Partner Phone Father Name Compound Coating Machine Offbearer Status 01/04/20 24 1 O Negative 174 OPEN Fetus Data First Name Last Name Admitted to NICU Weight (g) Sex Living Outcome Pediatric Complications Fetus ID Race Codes Race Delivery Type [id number] Problems Problem Notes EIF noted recheck at 32wk ob Problem Name Start Date End Date Resolution Snomed Code Not e depression 24293501 H/O growth restriction 25566785 previous pregna cy Cystic fibrosis carrier detection, blood 48246452 low r isk per [facility]per pt FOb tested previous - pt will confirm Placenta circumvallata 5126629 Herpes simplex 39765292 outbr eak at 8 weeks gestation in this pregancy, patient is on supressive therapy, acyclovir 1000 Palpitations 32409465 Asthma 073025768 Carlos Calculation Initial Carlos Date Initial Exam Date Initial Exam Provider Initial Ultrasound Date Last Menstrual Period Date Ultra Sound Weeks Gestation 07/08/2024 01/04/2024 01/04/2024 10/01/2023 13 Eighteen To Twenty Week Carlos Update Ultra Sound Date Fundal Height At Umbil Quickening Date Ultra Sound Latest Weeks Gestation Final Carlos Confirmed By Final Carlos Confirmed Date Final Carlos Date Ultra Sound Latest Days Gestation 02/22/20 24 19 [email or web address] 03/21/2024 07/08/19 25 6 Pre-matthew Flowsheet Flowsheet Date 01/04/2024 Garza Score Blood Edema Fundus Height Fundus Units Glucose Ketones Leukocytes Nitrite Labor Signs Protein Cervic Dilation Cervic Effacement Cervic Station 13 cm Type Weight in lbs Pre/Post Dialysis Refused Weight 174.795391256896 BP Diastolic BP Location Tested BP Systolic BP Type 85 L arm 134 sitting Fetus Heart Rate Present Fetus Movement Comments this patient is a 23-year-ol d female who presents for amenorrhea. She is a positive test. Ultrasound revealed a 1st trimester gestation. Patient has no complaints. We talked about early care. Talked about genetic screening. We talked about her ultrasound results. We talked about the 12 week ultrasound that has genetic screening components. She was given recommendations on exercise, diet, [id number] medications. We reviewed her obstetric history. We reviewed her medical history. We reviewed her social history. She will begin routine care at her next visit. Normal pelvic exam today Flowsheet Date 01/26/2024 Garza Score Blood Edema Fundus Height Fundus Units Glucose Ketones Leukocytes Nitrite Labor Signs Protein Cervic Dilation Cervic Effacement Cervic Station Type Weight in lbs Pre/Post Dialysis Refused Weight 177.55952344154 BP Diastolic BP Location Tested BP Systolic BP Type 84 L arm 133 sitting Fetus Heart Rate Present A 145 Fetus Movement A Increased Comments Patient c/o tachycardia and chest pains. routine care, no contractions, no vaginal bleeding, no loss of fluid, no crampingto get holter monitor and see cardiology Flowsheet Date 02/22/2024 Garza Score Blood Edema Fundus Height Fundus Units Glucose Ketones Leukocytes Nitrite Labor Signs Protein Cervic Dilation Cervic Effacement Cervic Station Type Weight in lbs Pre/Post Dialysis Refused BP Diastolic BP Location Tested BP Systolic BP Type Fetus Heart Rate Present Fetus Movement Comments Flowsheet Date 02/22/2024 Garza Score Blood Edema Fundus Height Fundus Units Glucose Ketones Leukocytes Nitrite Labor Signs Protein Cervic Dilation Cervic Effacement Cervic Station Type Weight in lbs Pre/Post Dialysis Refused 179.824187159745 BP Diastolic BP Location Tested BP Systolic BP Type 79 L arm 119 sitting Fetus Heart Rate Present A 144 Fetus Movement A Yes Comments no complaints, no problems, routine care, no contractions, no vaginal bleeding, no loss of fluid, no cramping Flowsheet Date 03/21/2024 Garza Score Blood Edema Fundus Height Fundus Units Glucose Ketones Leukocytes Nitrite Labor Signs Protein Cervic Dilation Cervic Effacement Cervic Station Type Weight in lbs Pre/Post Dialysis Refused 185.044176636161 BP Diastolic BP Location Tested BP Systolic BP Type 86 L arm 124 sitting Fetus Heart Rate Present A 145 Fetus Movement A Yes Comments no complaints, no problems, routine care, no contractions, no vaginal bleeding, no loss of fluid, no cramping Flowsheet Date 04/18/2024 Garza Score Blood Edema Fundus Height Fundus Units Glucose Ketones Leukocytes Nitrite Labor Signs Protein Cervic Dilation Cervic Effacement Cervic Station 30 cm Type Weight in lbs Pre/Post Dialysis Refused 191.791723891414 BP Diastolic BP Location Tested BP Systolic BP Type 85 L arm 132 sitting Fetus Heart Rate Present A 144 Fetus Movement A Yes Comments Reports reflux, and a possib le reflux related cough. Agreed to treat with proton pump inhibitor. routine care, no contractions, no vaginal bleeding, no loss of fluid, no cramping Flowsheet Date 05/05/2024 Garza Score Blood Edema Fundus Height Fundus Units Glucose Ketones Leukocytes Nitrite Labor Signs Protein Cervic Dilation Cervic Effacement Cervic Station Type Weight in lbs Pre/Post Dialysis Refused 195.807557867496 BP Diastolic BP Location Tested BP Systolic BP Type 85 L arm 125 sitting Fetus Heart Rate Present A 144 Fetus Movement A Yes Comments no complaints, no problems, routine care, no contractions, no vaginal bleeding, no loss of fluid, no cramping Flowsheet Date 05/12/2024 Garza Score Blood Edema Fundus Height Fundus Units Glucose Ketones Leukocytes Nitrite Labor Signs Protein Cervic Dilation Cervic Effacement Cervic Station Type Weight in lbs Pre/Post Dialysis Refused BP Diastolic BP Location Tested BP Systolic BP Type Fetus Heart Rate Present Fetus Movement Comments Flowsheet Date 05/12/2024 Garza Score Blood Edema Fundus Height Fundus Units Glucose Ketones Leukocytes Nitrite Labor Signs Protein Cervic Dilation Cervic Effacement Cervic Station Type Weight in lbs Pre/Post Dialysis Refused 195.666866110997 BP Diastolic BP Location Tested BP Systolic BP Type 86 L arm 128 sitting Fetus Heart Rate Present A 145 Fetus Movement A Yes Comments no complaints, no problems, routine care, no contractions, no vaginal bleeding, no loss of fluid, no cramping Flowsheet Date 05/26/2024 Garza Score Blood Edema Fundus Height Fundus Units Glucose Ketones Leukocytes Nitrite Labor Signs Protein Cervic Dilation Cervic Effacement Cervic Station Type Weight in lbs Pre/Post Dialysis Refused BP Diastolic BP Location Tested BP Systolic BP Type Fetus Heart Rate Present Fetus Movement Comments Flowsheet Date 05/26/2024 Garza Score Blood Edema Fundus Height Fundus Units Glucose Ketones Leukocytes Nitrite Labor Signs Protein Cervic Dilation Cervic Effacement Cervic Station 34 cm Type Weight in lbs Pre/Post Dialysis Refused 200.890513652119 BP Diastolic BP Location Tested BP Systolic BP Type 87 L arm 136 sitting Fetus Heart Rate Present A 152 Present Fetus Movement A Yes Comments no complaints, no problems, routine care, no contractions, no vaginal bleeding, no loss of fluid, no cramping Menstrual History Last Menstrual Date Menses Monthly On Bcp Conception Prior Menses Frequency Hcg Plus Date Menarche Onset Age 0610/01/2023 Delivery Information Delivery Date Delivery Type Labor Anesthesia Weeks Gestation Incision Type Labor Labor Length Hrs Delivered By Post Complications Tubal Sterilization Discharge Date Comments Discharge Information Feeding Method Contraceptive Method Maternal HG B and HCT Levels Ob Episode Information Episode Created Date Number of Fetuses Patient Bloodtype Patient rh Status Prepregnancy Weight lbs Domestic Partner Domestic Partner Phone Father Name Compound Coating Machine Offbearer Status 01/04/20 24 1 CLOSED Fetus Data First Name Last Name Admitted to NICU Weight (g) Sex Living Outcome Pediatric Complications Fetus ID Race Codes Race Delivery Type 2948.34 8 F Full Term [id number] Vaginal Delivery Carlos Calculation Initial Carlos Date Initial Exam Date Initial Exam Provider Initial Ultrasound Date Last Menstrual Period Date Ultra Sound Weeks Gestation 0 Eighteen To Twenty Week Carlos Update Ultra Sound Date Fundal Height At Umbil Quickening Date Ultra Sound Latest Weeks Gestation Final Carlos Confirmed By Final Carlos Confirmed Date Final Carlos Date Ultra Sound Latest Days Gestation 0 0 Menstrual History Last Menstrual Date Menses Monthly On Bcp Conception Prior Menses Frequency Hcg Plus Date Menarche Onset Age Delivery Information Delivery Date Delivery Type Labor Anesthesia Weeks Gestation Incision Type Labor Labor Length Hrs Delivered By Post Complications Tubal Sterilization Discharge Date Comments 9 39 Discharge Information Feeding Method Contraceptive Method Maternal HG B and HCT Levels Ob Episode Information Episode Created Date Number of Fetuses Patient Bloodtype Patient rh Status Prepregnancy Weight lbs Domestic Partner Domestic Partner Phone Father Name Compound Coating Machine Offbearer Status 01/04/20 24 1 CLOSED Fetus Data First Name Last Name Admitted to NICU Weight (g) Sex Living Outcome Pediatric Complications Fetus ID Race Codes Race Delivery Type 2891.64 9 F Full Term [id number] Vaginal Delivery Carlos Calculation Initial Carlos Date Initial Exam Date Initial Exam Provider Initial Ultrasound Date Last Menstrual Period Date Ultra Sound Weeks Gestation 0 Eighteen To Twenty Week Carlos Update Ultra Sound Date Fundal Height At Umbil Quickening Date Ultra Sound Latest Weeks Gestation Final Carlos Confirmed By Final Carlos Confirmed Date Final Carlos Date Ultra Sound Latest Days Gestation 0 0 Menstrual History Last Menstrual Date Menses Monthly On Bcp Conception Prior Menses Frequency Hcg Plus Date Menarche Onset Age Delivery Information Delivery Date Delivery Type Labor Anesthesia Weeks Gestation Incision Type Labor Labor Length Hrs Delivered By Post Complications Tubal Sterilization Discharge Date Comments 8 38.3 Discharge Information Feeding Method Contraceptive Method Maternal HG B and HCT Levels
--- OUTSIDE RECORDS SUMMARY | 2024-05-28 14:42 | XMS_ITS | Referral Summary ---
Author Organization [facility] Address [address] [place] [address] Care Team Providers Care Floor Person Name Role Phone Unavailable Primary Care Provider Unavailabl e Source Comments [facility],non-owned Affiliates and Associated Physician Practices is amultiple site organization consisting of ambulatory clinics and hospital sitesin [place], [place], [place] and [place]. This disclosure is being madepursuant to the Care Everywhere program and may not contain all information available regarding this patient. Last updated 17.[facility] Allergies Active Allergy Reactions Criticality Noted Date [...] 07/07/2019 2:27 PM CDT Plan of Treatment Not on file NITZA JASON Personal/Family [address] [place] [id number] Nitza Jason Personal/Family Self [address] [place] [phone]
--- OUTSIDE RECORDS SUMMARY | 2024-05-28 14:42 | XMS_ITS | Patient Health Summary ---
Author Organization [facility] Address [address] [place] [address] Care Team Providers Care Step Finisher Name Role Phone Unavailable Primary Care Provider Unavailabl e [facility] from [facility],non-owned Affiliates and Associated Physician Practices is amultiple site organization consisting of ambulatory clinics and hospital sitesin [place], [place], [place] and [place]. This disclosure is being madepursuant to the Care Everywhere program and may not contain all information available regarding this patient. Last updated 17.[facility] Allergies * Cephalosporins(Rash) -Medium Criticality * Ceftriaxone(Rash) -Medium Criticality Medications * Be aware that medications may not be up to date on this document. Alwaysverify current medications with the patient. * montelukast (SINGULAIR) 10 MG tablet Take 10 mg by mouth at bedtime * acyclovir (ZOVIRAX) 800 MG tablet Take 800 mg by mouth once daily * methylPREDNISolone (MEDROL DOSEPAK) 4 MG tablet(Started 07/07/2019) Take by mouth as directed Active Problems Problem Noted Date Diagnosed Date [...] Mass Index 26.51 07/07/2019 2:27 PM CDT Procedures * INFLUENZA A+B - POINT OF CARE (AMB)(Performed 07/07/2019) Performed for Moderate asthma with acute exacerbation, unspecified whether persistent (HCC) * STREP A SCREEN - POINT OF CARE (AMB) STL(Performed 07/07/2019) Performed for Moderate asthma with acute exacerbation, unspecified whether persistent (HCC) * SONOGRAM - LIMITED(Performed 09/28/2018) Performed for Amniotic fluid index increased (HCC) * SONOGRAM - COMPLETE(Performed 09/21/2018) Performed for Poor growth affecting management of mother in third trimester, single or unspecified fetus (HCC) * SONOGRAM - COMPLETE(Performed 08/31/2018) Performed for Poor growth affecting management of mother in third trimester, single or unspecified fetus (HCC) * STREP A SCREEN - POINT OF CARE (AMB) STL(Performed 12/22/2017) Performed for Acute streptococcal pharyngitis * SONOGRAM - COMPLETE(Performed 08/21/2017) Performed for Small for gestational age (HCC) * SONOGRAM - COMPLETE(Performed 07/31/2017) Performed for SGA (small for gestational age), , affecting care of mother, antepartum, second trimester, not applicable or unspecified fetus (HCC), Evaluate anatomy not seen on prior sonogram, Encounter for ultrasound to assess growth in twin , antepartum (HCC) * SONOGRAM - COMPLETE(Performed 07/17/2017) Performed for Small for gestational age (HCC) Results * STREP A SCREEN (07/07/2019) Only the most recent of2 resultswithin the time period is included. Strep A Rapid POCT Negative Negative Strep A Internal Control Present Lot # [id number] Expiration Date 12/04/2020 Throat ENTIRE THROAT (SURFACE REGION OF NECK) / Unknown 07/07/2019 Shaneka Baxter SCENE PAINTER-CERTIFIED [facility] OPERATOR LAB - PO INT OF CARE ORDERABLES * INFLUENZA A+B - POINT OF CARE (AMB) (07/07/2019) Influenza A Antigen Rapid Negative Negative Influenza B Antigen Rapid Negative Negative Influenza Internal Control present NEGATIVE - POSITIVE Influenza Lot Number [id number] Influenza Expiration Date 03/11/2021 Other NASOPHARYNGEAL SWAB / Unknown 07/07/2019 Shaneka Cadena Sahil SCENE PAINTER-CERTIFIED [facility] OPERATOR LAB - PO INT OF CARE ORDERABLES * SONOGRAM - LIMITED (09/28/2018 2:27 PM CDT) Anatomical Region Laterality Modality Other 09/28/2018 2:27 PM CDT Narrative 09/28/2018 3:[address] [facility] PHONE: FAX: Pat. Name: NITZA JASON Pat. No: [id number] Study Date: 09/28/2018 2:27pm , Age: 07 2000, 17 Pregnancies: 2, Para 1 Height: 60 in Weight: 136 lb LMP: Unknown GA by Base: 34w1d LISA: 11/08/2018 GA Selected: 34w1d (From Baselin) LISA: 11/08/2018 Referring MD: Trey Douglas MD Crop Adjuster: Netta Candelario [facility] CPT4: 11356 BMI: 26.56 Hist/Ind: Growth Restriction on Outside Scan Heart Rate: 146 bpm Amniotic Fluid Index: 23.6cm (08.1-24.8) Q1: 5.3cm Q2: 5.2cm Q3: 7.0cm Q4: 6.0cm EVAL, PLACENTA Presentation: transverse MaternalSide: right Placenta: anterior Heart Rate: 146 bpm Amniotic Fluid Volume: normal Anatomy!Normal!Abnormal!Suboptimal!Prev. Seen!Comments Profile ! x ! ! ! ! Ductal Arch ! ! ! x ! ! Aortic Arch ! ! ! x ! ! Stomach ! x ! ! ! ! Kidneys ! x ! ! ! ! Bladder ! x ! ! ! ! Hands ! ! ! x ! ! CLINICAL SUMMARY Study Number: 3 A single fetus is identified in transverse presentation. The placenta is anterior. The amniotic fluid volume is normal. IMPRESSION: Single, live IUP at 34w1d. Hydramnios resolved Baby was measuring at the 10th percentile overall at 30 wks and at the 24th at 33wks RECOMMEND: Follow up ultrasound as clinically indicated. Thank you for allowing us the opportunity to care for your patient. Ted Jara MD <Electronic Signature> 09/28/2018 03:32pm Ted Jara MD [facility] ORDERABLES * SONOGRAM - COMPLETE (09/21/2018 1:42 PM CDT) Only the most recent of5 resultswithin the time period is included. Anatomical Region Laterality Modality Other 09/21/2018 1:42 PM CDT Narrative 09/21/2018 2:52 PM CDT [facility] PATIÑO [facility]leg[facility] PHONE: FAX: Pat. Name: NITZA JASON Pat. No: [id number] Study Date: 09/21/2018 1:42pm , Age: 07 2000, 17 Pregnancies: 2, Para 1 Height: 60 in Weight: 136 lb LMP: Unknown GA by Base: 33w1d LISA: 11/08/2018 GA by US: 32w4d LISA: 11/12/2018 GA Selected: 33w1d (From Known E) LISA: 11/08/2018 Referring MD: Trey Douglas MD Crop Adjuster: Samantha Goss RDMS CPT4: 02376 BMI: 26.56 Hist/Ind: Growth Restriction on Outside Scan MEASUREMENTS & AGE GROWTH EVALUATION Measurement GA Range Srce %for GA Ratios ----- ---- ------- BPD 7.9 cm 31w4d ([id number]) Hadl BPD 7% FL/BPD 0.82 (0.71 - 0.87) HC 29.9 cm 33w1d (78u9u-52e6n) Hadl HC 15% FL/AC 0.23 (0.20 - 0.24) AC 28.0 cm 32w0d (59l4r-86f4f) Hadl AC 20% HC/AC 1.07 (0.95 - 1.13) FL 6.4 cm 33w1d (61u9h-32a2l) Hadl FL 38% CI 0.71 (0.70 - 0.86) HL 5.3 cm 31w1d (77y9y-61c8z) Bob HL 16% GA for sonogram 32w4d (68y5t-38u3a) Weight Estimate: based on (BPD,HC,AC,FL) Avg Weight: 1989 gm (1698-2279gm) Had : 4lbs, 6oz Normal: 2193 gm (1645-2741gm) Had Wt% 24% for 33w1d Heart Rate: 150 bpm Amniotic Fluid Index: 25.1cm (08.3-24.5)* Q1: 4.8cm Q2: 5.9cm Q3: 7.3cm Q4: 7.1cm Biophysical Profile: 01/13 Breathin Tone: 2 NST: 2 Movement: 2 AFV: 2 EVAL, PLACENTA Presentation: cephalic Placenta: anterior Heart Rate: 150 bpm Amniotic Fluid Volume: Hydramnios CLINICAL SUMMARY Study Number: 2 A single fetus is identified in cephalic presentation. The measurements today are consistent with appropriate growth compared to the previous examination. The LISA selected is based on a prior ultrasound. The amniotic fluid volume is Hydramnios. The placenta is anterior. No major malformations are seen within the limitations of ultrasound examination. I have reviewed the FHR tracing and it is very reassuring, reactive, normal variability (moderate) & baseline (135 bpm) and without decelerations. jt IMPRESSION: Single, live, IUP at 33w1d . Appropriate size. Hydramnios present with amniotic fluid index 25.1 Reassuring NST and BPP today. Anatomy survey is complete. No major anomalies noted within limits of the ultrasound.. RECOMMEND: Follow up ultrasound in one week to re-evaluate amniotic fluid volume. If hydramnios persists consider once weekly BPP and NST Thank you for allowing us the opportunity to care for your patient. Ted Jara MD <Electronic Signature> 09/21/2018 02:53pm Ted Jara MD [facility] ORDERABLES
[2024-05-28 15:20] LABS: Basophils Percent Auto 0.3 % (0.2-1.2); Eosinophils Absolute Auto 0.1 K/mm3 (0-0.3); Eosinophils Percent Auto 0.9 % (0-4.4); Hematocrit 35.2 % (37.0-47.0); Hemoglobin 11.9 g/dL (12.0-15.0); Immature Granulocyte Absolute 0.21 K/mm3 (0.00-0.031); Immature Granulocyte Percent A 1.6 % (0-0.5); Lymphocytes Absolute Auto 2.08 K/mm3 (0.9-3.2); Lymphocytes Percent Auto 16.3 % (18.3-44.2); Mean Corpuscular HGB Conc 33.8 g/dl (32-36); Mean Corpuscular Hemoglobin 32.4 pg (26-34); Mean Corpuscular Volume 95.9 fl (80-100); Mean Platelet Volume 9.6 fl (7.4-10.4); Monocytes Absolute Auto 0.8 K/mm3 (0.1-0.6); Monocytes Percent Auto 6.3 % (2.6-8.5); Neutrophils Absolute Auto 9.5 K/mm3 (1.3-6.7); Neutrophils Percent Auto 74.6 % (45.5-73.1); Platelet Count Result 314 k/mm3 (150-375); Red Blood Count 3.67 M/mm3 (4.2-5.4); White Blood Count 12.8 K/mm3 (4.5-10.0)
[2024-05-28 15:26] LABS: Add Urine Microscopic? YES; Appearance Urine Clear (Clear); Bacteria Urine None Seen /hpf; Bilirubin Urine Negative (Negative); Blood Urine Negative (Negative); Color Urine Yellow (Yellow); Glucose Urine UA Negative (Negative); Ketones Urine Negative (Negative); Leukocyte Esterase Ur 2+ LEU/UL (Negative); Nitrate Urine Negative (Negative); Non Pathogenic Casts 0-2; Protein Urine Negative (Negative); RBC Urine 0-2 /hpf (0-2); Squamous Epithelial Cell Urine Few /hpf (Few); Urobilinogen Urine 0.2 mg/dL (<2.0); WBC Urine 21-50 /hpf (0-3); pH Urine 6.5 (5.0-9.0)
[2024-05-28 15:27] LABS: Creatinine Urine 44.3 mg/dL; Total Protein Urine Random 23 mg/dL; Ur Ttl Prot Creatinine Ratio 0.52 mg/mg (0-0.20)
[2024-05-28 15:31] LABS: Alanine Aminotransferase 18 U/L (6-35); Albumin Level 3.4 g/dL (3.5-5.1); Alkaline Phosphatase 113 U/L (38-126); Anion Gap 10 mmol/L (4-12); Aspartate Amino Transferase 15 U/L (14-36); Bilirubin,Total 0.4 mg/dL (0.2-1.3); Blood Urea Nitrogen 7 mg/dL (7-17); Calcium 9.5 mg/dL (8.4-10.2); Carbon Dioxide 20 mmol/L (22-30); Chloride 106 mmol/L (98-107); Estimated Glomerular Filt Rate > 60; Glucose 115 mg/dL (65-110); Potassium 3.6 mmol/L (3.4-5.0); Sodium 136 mmol/L (137-145); Uric Acid 5.1 mg/dL (2.5-7.5)
[2024-05-28 16:11] LABS: Influenza A QL RT-PCR Negative (Negative); Influenza B QL RT-PCR Negative (Negative); RSV RNA, RT-PCR Negative (Negative); SARS-CoV-2 RNA PCR Negative (Negative)
--- NOTE | 2024-05-28 16:17 | PC.NURSE ---
Arlyn Barkley notified of Lab results and that patient is still dizzy after Po hydration. Orders received.
[2024-05-28] MEDS: DEXTROSE 5%/LACTATED RINGERS 1,000 ML 999 ML IV CONT (16:55)
[2024-05-28] MEDS: SCOPOLAMINE 1 MG PATCH 1 PATCH TRANSDERM (16:55)
--- NOTE | 2024-05-28 17:50 | PC.NURSE ---
Patient reports that she is feeling better after IV fluids and is comfortable going home.
== END 2024-05-28 17:55 | disposition home or self-care (01) ==
LOC: ANHOBOP 14:40 → ANHOBPP 14:43
PROVIDERS: Visit Provider Obstetrics & Gynecology
DX: O13.9 Gestational [pregnancy-induced] hypertension without significant proteinuria, unspecified trimester (principal); Z3A.00 Weeks of gestation of pregnancy not specified
CPT/HCPCS: 36415; 59025; 80053; 81001; 82570; 84156; 84550; 85025; 87086; 87637; 99199; A9270; J7121

== ENCOUNTER 2024-06-05 02:21 | Emergency (ER) | payer OTHER, SELFPAY ==
[2024-06-05 02:22] VITALS: BP 143/99; PULSE 116; RESP 20; TEMP 36.6; O2SAT 100
[2024-06-05 03:03] LABS: Strep Group A RT-PCR NOT DETECTED (Negative)
[2024-06-05 03:14] LABS: Influenza A QL RT-PCR Positive (Negative); Influenza B QL RT-PCR Negative (Negative); RSV RNA, RT-PCR Negative (Negative); SARS-CoV-2 RNA PCR Negative (Negative)
--- NOTE | 2024-06-05 03:21 | ED.GENADULT ---
HPI - General Adult General Chief complaint: Upper Respiratory Infection Stated complaint: 35 weeks , sore throat Time Seen by Provider: 06/05/24 02:34 History of Present Illness HPI narrative: Patient is a 23-year-old female who presents emergency department this morning complaining of flu-like symptoms. Patient states that 1 of her kids and is getting over influenza A. Patient is approximately 35 weeks , [address]rd [address] Dr. Gavin as her OB. Patient states that she recently had flu/RSV/COVID test which were negative but her symptoms have persisted for 1 week and she is now having a sore throat so she came in for further evaluation. OB did inform her to use momw-vhi-exkenep symptomatic treatment such as Delsym 12 hour cough suppressants and Tylenol as needed which she has been using. Patient denies any additional symptoms or concerns including any abdominal pain or vaginal bleeding or spotting. She states that she has been feeling the baby move normally. Related Data Allergies Allergy/AdvReac Type Severity Reaction Status Date / Time ceftriaxone (From Rocephin) Allergy Rash Verified 03/12/24 01:06 Cephalosporins Allergy Rash Verified 03/12/24 01:06 Review of Systems Review of Systems: All systems are reviewed and are negative unless stated otherwise in the HPI. [facility] Past Medical History Medical History Healthy female adult Surgical History Surgical History No pertinent past surgical history Social History Social History Smoking status: Never smoker Gender identity (if verbalized by the patient): Female Exam Narrative: General: Alert, awake, afebrile, in no acute distress. HEENT: PERRL, no rhinorrhea, no post nasal drip, oropharynx clear. Neck: Trachea midline, no JVD, no lymphadenopathy. Cardiovascular: Regular rate and rhythm, no murmurs, rubs or gallops, no peripheral edema. Respiratory: Clear to auscultation bilaterally, no tachypnea, no wheezing, no rhonchi, no rubs, no respiratory distress. Abdomen: Gravid, no rebound, no guarding, no peritoneal signs. Musculoskeletal: No joint swelling or deformity, normal muscle tone. Skin: No rashes or petechia, no signs of infection. Psychiatric: Alert and oriented, normal behavior and judgment for situation. Neurological: Alert and oriented to person, place, and time. Follows all commands. No focal deficits, speech is clear and fluent. Course Vital Signs Vital signs: Vital Signs Temperature 97.8 F 06/05/24 02:22 Pulse Rate 116 H 06/05/24 02:22 Respiratory Rate 20 06/05/24 02:22 Blood Pressure 143/99 H 06/05/24 02:22 Pulse Oximetry 100 06/05/24 02:22 Oxygen Delivery Room Air 06/05/24 02:22 Temperature 97.8 F 06/05/24 02:22 Pulse Rate 116 H 06/05/24 02:22 Respiratory Rate 20 06/05/24 02:22 Blood Pressure 143/99 H 06/05/24 02:22 Pulse Oximetry 100 06/05/24 02:22 Oxygen Delivery Room Air 06/05/24 02:22 Medical Decision Making [facility] Narrative Medical decision making narrative: The patient was evaluated by myself in the emergency department. History is obtained from patient who is an independent historian and physical exam was performed. External medical records were reviewed at this time. Strep swab was negative, viral swabs did return back positive for influenza A. Differential diagnosis considerations include acute viral syndrome including COVID/influenza/RSV. Comorbidities impacting this visit include none. I have evaluated and discussed social determinants of health with the patient that could potentially impact subsequent diagnosis and treatment plans. On repeat assessment of the patient, reevaluation revealed that the patient is doing well and is in no acute distress. Patient symptoms have remained stable since she arrived to our emergency department. Repeat vital signs were all reviewed and noted to be stable. Differential diagnosis and treatment plan were discussed with the patient at bedside. Patient agrees with discussion and after shared medical decision making agrees with discharge. All questions were answered to the patient's satisfaction. Patient will follow up with OB in 3-5 days. Patient was provided with strict return precautions and instructed to return to the emergency department if any new or worsening symptoms develop. The patient was discharged in stable condition. Vital Signs Vital Signs: Vital Signs Temperature 97.8 F 06/05/24 02:22 Pulse Rate 116 H 06/05/24 02:22 Respiratory Rate 20 06/05/24 02:22 Blood Pressure 143/99 H 06/05/24 02:22 Pulse Oximetry 100 06/05/24 02:22 Oxygen Delivery Room Air 06/05/24 02:22 Temperature 97.8 F 06/05/24 02:22 Pulse Rate 116 H 06/05/24 02:22 Respiratory Rate 20 06/05/24 02:22 Blood Pressure 143/99 H 06/05/24 02:22 Pulse Oximetry 100 06/05/24 02:22 Oxygen Delivery Room Air 06/05/24 02:22 Lab Data Labs: Lab Results 06/05/24 Range/Units 02:33 Influenza A (RT-PCR) Positive A (Negative) Influenza B (RT-PCR) Negative (Negative) RSV (RT-PCR) Negative (Negative) SARS-CoV-2 RNA (RT-PCR) Negative (Negative) Group A Strep (PCR) Not detected (Negative) Discharge Plan Discharge Clinical Impression: Influenza Patient Disposition: Home, Self-Care Condition: Stable Instructions: Antibiotic Form, Influenza (ED) Additional Instructions: Please follow-up with your OBGYN within the next 3-5 days. Return to the ED if any new or worsening symptoms develop. Continue with your symptomatic treatment as instructed by your OBGYN. Return to the ED if any new or worsening symptoms develop. Patient Language: Indonesian Prescriptions: No Action valacyclovir 1 gram tablet 1,000 mg PO TID 10 Days Qty: 30 0RF sulfamethoxazole-trimethoprim [Bactrim DS] 800-160 mg tablet 1 tablet PO Q12H 7 Days Qty: 14 0RF azithromycin 500 mg tablet 500 mg PO DAILY 5 Days Qty: 5 0RF nitrofurantoin monohyd/m-cryst [Macrobid] 100 mg capsule 100 mg PO Q12H 5 Days Qty: 10 0RF Rx Instructions: must administer with a meal/food Follow-up/Referrals: Antolin Gavin MD [Physician] - 3 Days UNKNOWN,DOCTOR [Primary Care Provider] - Time of Disposition:
[2024-06-05 03:36] VITALS: BP 122/97; PULSE 97; RESP 22; O2SAT 100
== END 2024-06-05 03:37 | disposition home or self-care (01) ==
PROVIDERS: Emergency Provider Emergency Medicine
DX: O99.513 Diseases of the respiratory system complicating pregnancy, third trimester (principal); J10.1 Influenza due to other identified influenza virus with other respiratory manifestations; Z20.822 Contact with and (suspected) exposure to COVID-19; Z3A.35 35 weeks gestation of pregnancy
CPT/HCPCS: 87637; 87651; 99283

== ENCOUNTER 2024-06-14 15:19 | Outpatient (CLI) | payer OTHER, SELFPAY ==
[2024-06-14 15:45] VITALS: BP 133/82; PULSE 95
[2024-06-14 16:00] VITALS: BP 130/81; PULSE 91
[2024-06-14 16:01] LABS: Basophils Percent Auto 0.2 % (0.2-1.2); Eosinophils Absolute Auto 0.1 K/mm3 (0-0.3); Eosinophils Percent Auto 0.9 % (0-4.4); Hematocrit 33.1 % (37.0-47.0); Hemoglobin 11.2 g/dL (12.0-15.0); Immature Granulocyte Absolute 0.11 K/mm3 (0.00-0.031); Immature Granulocyte Percent A 1.2 % (0-0.5); Lymphocytes Percent Auto 23.8 % (18.3-44.2); Mean Corpuscular HGB Conc 33.8 g/dl (32-36); Mean Corpuscular Hemoglobin 32.7 pg (26-34); Mean Corpuscular Volume 96.8 fl (80-100); Mean Platelet Volume 9.7 fl (7.4-10.4); Monocytes Absolute Auto 0.7 K/mm3 (0.1-0.6); Neutrophils Absolute Auto 6.1 K/mm3 (1.3-6.7); Neutrophils Percent Auto 65.9 % (45.5-73.1); Platelet Count Result 331 k/mm3 (150-375); Red Blood Count 3.42 M/mm3 (4.2-5.4); Red Cell Distribution Width 13.5 % (11.5-14.5); White Blood Count 9.2 K/mm3 (4.5-10.0)
[2024-06-14 16:02] LABS: Add Urine Microscopic? NO; Appearance Urine Clear (Clear); Bilirubin Urine Negative (Negative); Blood Urine Negative (Negative); Color Urine Yellow (Yellow); Glucose Urine UA Negative (Negative); Ketones Urine Negative (Negative); Leukocyte Esterase Ur Negative LEU/UL (Negative); Nitrate Urine Negative (Negative); Protein Urine Negative (Negative); Specific Grav Ur 1.008 (1.001-1.035); Urobilinogen Urine 0.2 mg/dL (<2.0)
[2024-06-14 16:11] LABS: Alanine Aminotransferase 22 U/L (6-35); Albumin Level 3.2 g/dL (3.5-5.1); Alkaline Phosphatase 134 U/L (38-126); Anion Gap 8 mmol/L (4-12); Aspartate Amino Transferase 18 U/L (14-36); Bilirubin,Total 0.5 mg/dL (0.2-1.3); Blood Urea Nitrogen 2 mg/dL (7-17); Calcium 8.6 mg/dL (8.4-10.2); Carbon Dioxide 21 mmol/L (22-30); Chloride 108 mmol/L (98-107); Estimated Glomerular Filt Rate > 60; Glucose 91 mg/dL (65-110); Potassium 3.5 mmol/L (3.4-5.0); Sodium 137 mmol/L (137-145); Uric Acid 5.6 mg/dL (2.5-7.5)
[2024-06-14 16:12] LABS: Creatinine Urine 43.1 mg/dL; Total Protein Urine Random 14 mg/dL; Ur Ttl Prot Creatinine Ratio 0.32 mg/mg (0-0.20)
[2024-06-14 16:15] VITALS: BP 132/82; PULSE 93
[2024-06-14 16:21] VITALS: BP 133/82; PULSE 103; BMI 40.4
--- NOTE | 2024-06-14 17:13 | PC.NURSE ---
Dr Walker notified of labs, BP 's and reactive tracing, Ok to nd home.
--- OUTSIDE RECORDS SUMMARY | 2024-06-14 17:23 | XMS_ITS | Data Portability ---
Author Organization [facility] Address [address] [place] [address] [place] [address] Assessment Encounter Date Assessment Date Assessment LastModified by Organization Details LastModified Time 05/26/2024 05/26/2024 Patient is ___weeks . Discussed plan. Not available 05/26/2024 11:28:03 06/09/2024 06/09/2024 Patient is ___weeks . Discussed plan. Not available 06/09/2024 13:29:22 Plan of Treatment Reminders Order Date Submit Date Provider Last Modified By Organization Details Last Modified Time Details Appointments OB ROUTINE 2024 10:15A Marielena CLOUD MD Not available Not available Not available OB ROUTINE 2024 11:15A Marielena CLOUD MD Not available Not available Not available OB ROUTINE 2024 10:45A Marielena CLOUD MD Not available Not available Not available Lab None recorded . Referral None recorded . Procedures None recorded . Surgeries None recorded . Imaging US, obstetri c, follow-u p 2024 025 [email or web address] [address], [place], [address], 06/09/2024 20:26:16 US, obstetri c, follow-u p 2024 025 [email or web address] [address], [address], [place], [address], 05/12/2024 19:35:34 Medication Orders None recorded . Patient TargetsNo targets recorded. Patient InstructionsNo instructions recorded. Reason for Referral None Reported. Results Created Date Observation Date Name Description Value Unit Range Abnormal Flag Note LastModifiedBy Organization Detail LastModifiedTime 04/21/1904/21/2024 GTT - GESTA JESUS L, 3 HOUR, ACOG glucose, fasting acog 81 mg/dL 70-94 Not Available [facility] (Lab) [address], [place], [address], 04/22/2024 13:19:52 04/21/19 25 04/21/2024 GTT - GESTA JESUS L, 3 HOUR, ACOG glucose, 1 hour acog 162 mg/dL 70-179 Not Available [facility] (Lab) [address] [place], [address], 04/22/2024 13:19:52 04/21/19 25 04/21/2024 GTT - GESTA JESUS L, 3 HOUR, ACOG glucose, 2 hour acog 136 mg/dL 70-154 Not Available [facility] (Lab) [address] [place], [address], 04/22/2024 13:19:52 04/21/19 25 04/21/2024 GTT - GESTA JSEUS L, 3 HOUR, ACOG glucose, 3 hour acog 77 mg/dL 70-139 Not Available [facility] (Lab) [address] [place], [address], 04/22/2024 13:19:52 04/21/19 25 04/21/2024 RPR SCREE N, REFLE X TITER /CONF IRMAT ION RPR screen Nonrea ctive nonrea ctive Not Available [facility] (Lab) [address] [place], [address], 04/22/2024 13:19:52 06/10/19 25 06/09/2024 CULTU RE: GROUP B STREP SCREE N, REFLE X SUSCE PTIBI LITY result report SEE RESULT S BELOW abnormal Test: Cultu re: Group B Strep , Refle x Susce ptibi lity ([facility]/ [facility]/K H/[facility] ) Speci men Sourc e: Vagin a/Rec sonya Speci men Type: Vagin al/Re ctal Speci men Date: 025 1654 Resul t Date: 2024 1532 Resul t Statu s: Final resul t Abnor mal: Yes Resul ting Lab: [facility] [address] [facility] [address] Tel: CULTU RE ----- ----- ----- --- Posit yariel for Strep tococ cus agala ctiae (Grou p B) (Abno rmal) Clind amyci n = resis tant, eryth romyc in = resis tant. Cefaz chester may be used for intra partu m proph ylaxi s in penic illin -tirso rgic women at low risk, and Vanco mycin is recom lake d for women at high risk for anaph ylaxi s. Susce ptibi lity testi ng is not neces corby for these drugs . Not Available [facility] (Lab) [address], [place], [address], 06/13/2024 16:35:48 05/12/19 25 05/12/2024 US, obste tric, follo w-up No observ ation record ed. darya Dowell [address] [facility], [place], [address], 06/01/2024 16:31:39 05/12/19 25 05/12/2024 US, obste tric, follo w-up No observ ation record ed. [email or web address] [address], [place], [address], 05/12/2024 18:35:54 06/10/19 25 06/09/2024 US, obste tric, follo w-up No observ ation record ed. [email or web address] [address], [place], [address], 06/09/2024 15:32:01 06/10/19 25 06/09/2024 US, obste tric, follo w-up No observ ation record ed. [email or web address] [address], [place], [address], 06/14/2024 16:55:48 Result Notes None recorded. Problems Name Problem SNOMED Code Status Onset Date Resolution Date Notes Provider Name and Address Organization Details Recorded Time 29256017 Active 2023 Sandy Wu stacey, [facility] 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 4 13:31:34 growth restricti on 77310566 Active previous pregnacy Ashley Hunt stacey, [facility] 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 4 16:52:33 Palpitati ons 10276814 Active Antolin Cloud MD [address], [place], [address], [facility] 4 12:49:18 Postpartu m depressio n 17319328 Active H/O Antolin Cloud MD [address], [place], [address], [facility] 4 12:49:46 Placenta circumval remi 2818766 Active Antolin Cloud MD [address], [place], [address], [facility] 4 13:10:24 Asthma 382774945 Active Antolin Cloud MD [address], [place], [address], [facility] 5 13:06:41 Problem Notes None recorded. Procedures Surgical History Date Name Laterality Status Provider Name and Address Organization Details Recorded Time 01/04/2024 Date of Last Pap Smear completed Leny Espinoza [facility] 02/22/2024 12:44:22 Imaging Results Imaging Date Name Status LastModified by Organiz ation Details LastModified Time 05/12/2024 US, obstetric, follow-up completed [email or web address] [address], [place], [address], 06/01/2024 16:31:39 05/12/2024 US, obstetric, follow-up completed [email or web address] [address], [place], [address], 05/12/2024 18:35:54 06/09/2024 US, obstetric, follow-up completed [email or web address], [place], [address], 06/09/2024 15:32:01 06/09/2024 US, obstetric, follow-up completed williams [address], [place], [address], 06/14/2024 16:55:48 Procedure Notes None recorded. Medical Equipment None Reported. Allergies Allergen ID Allergen Name Allergen Category Reaction Reaction Severity Criticality Documentation Date Start Date Code Code System Note Provider Name and Address Organization Details Recorded Time 76984 Product containin g cephalosp rebeca (product) medicatio n rash Not available Not available 01/04/2024 27660 9009 SNOMED Naima ibarra, [facility] 4 12:50:18 Medications Name Sig Start Date Stop [...] completed Not Available Not Available Not Available nitrofurant oin monohydrate /macrocryst als 100 mg capsule TAKE 1 CAPSULE BY MOUTH EVERY 12 HOURS FOR 5 DAYS 06/09 completed Not Available Not Available Not Available iron active Not Available Not Availa ble Not Available active Not Available Not Avai lable Not Available Vitals Date Recorded Body weight Systolic blood pressure Diastolic blood pressure Provider Name and Address Organization Details Last Updated DateTime 05/12/2024 62536.5121 5 g 128 mm[Hg] 86 mm[Hg] Leny Espinoza [facility] 05/12/2024 12:58:35 Date Recorded Body weight Systolic blood pressure Diastolic blood pressure Provider Name and Address Organization Details Last Updated DateTime 05/26/2024 56584.474 g 136 mm[Hg] 87 mm[Hg] Leny Espinoza [facility] 05/26/2024 11:28:38 Date Recorded Body weight Systolic blood pressure Diastolic blood pressure Provider Name and Address Organization Details Last Updated DateTime 06/09/2024 98767.6205 9 g 134 mm[Hg] 88 mm[Hg] Leny Espinoza [facility] 06/09/2024 13:29:53 Social History Question Answer Notes LastModified by Organizat ion Details LastModified Time What Is Your Level Of Alcohol Consumption? Occasional [email or web address] Information not available 01/04/2024 Are You Blind Or Do You Have Difficulty Seeing? No [email or web address] Information n ot available 01/04/2024 What Is Your Level Of Caffeine Consumption? Heavy [email or web address] Information not available 01/04/2024 How Much Tobacco Do You Chew? None [email or web address] Information not available 01/04/2024 In The 14 Days Before Symptom Onset, Have You Had Close Contact With A Laboratory-confirm ed COVID-19 While That Case Was Ill? No [email or web address] Information n ot available 01/04/2024 In The 14 Days Before Symptom Onset, Have You Had Close Contact With A Person Who Is Under Investigation For COVID-19 While That Person Was Ill? No [email or web address] Information not available 01/04/2024 Have You Been To An Area Known To Be High Risk For COVID-19? No Information not available 01/04/2024 Are You Deaf Or Do You Have Serious Difficulty Hearing? No [email or web address] Information not available 01/04/2024 What Type Of Diet Are You Following? REGULAR [email or web address] Information n ot available 01/04/2024 What Is The Highest Grade Or Level Of School You Have Completed Or The Highest Degree You Have Received? NB19750-5 [email or web address] Information not available 01/04/2024 What Is Your Occupation? Unemployed [email or web address] Information not available 01/04/2024 Are There Any Guns Present In Your Home? No [email or web address] Information not available 01/04/2024 Do You Use Protection During Sex? No [email or web address] Information not available 01/04/2024 Do You Use Your Seat Belt Or Car Seat Routinely? Yes [email or web address] Information not available 01/04/2024 Do You Have Smoke And Carbon Monoxide Detectors In Your Home? Yes Information not available 01/04/2024 How Much Tobacco Do You Smoke? No [email or web address] Information not available 01/04/2024 Do You Feel Stressed (tense, Restless, Nervous, Or Anxious, Or Unable To Sleep At Night)? KD80924-0 [email or web address] Information not available 01/04/2024 Do You Use Any Illicit Or Recreational Drugs? No [email or web address] Information not available 01/04/2024 Do You Use Sunscreen Routinely? Yes [email or web address] Information not available 01/04/2024 Have You Used IV Drugs? No [email or web address] Information not available 01/04/2024 Sex: Unknown Functional Status Question Answer Note LastModified by Organizat ion Details LastModified Time Are you able to walk? YESWOREST [email or web address] Information not available 01/04/2024 What is your exercise level? Occasional [email or web address] Information not available 01/04/2024 Mental Status None recorded. Family History Relationship Description Onset Age of this Age Resolved Age Notes LastModified by Organization Details LastModified Time Unspecified Relation Family history unknown Not available 2023 12:50:24 Medical History Condition [...] SNOMED-CT Code Diagnosis ICD10 Code Diagnosis Note [id number] Zita Clements [address] [address] 01/04/2024 11:49:02 01/04/2024 12:42:58 screening 022072658 Z36.82 Z3A.13 [id number] Antolin Cloud MD [address] [address] 01/04/2024 11:51:47 01/04/2024 13:50:17 Routine care 694968637 Z34.91 screening 2437 87592 Z36.89 Herpes simplex 44170164 B00.9 [id number] Antolin Cloud MD [address],[place] [address] 01/26/2024 11:20:14 01/26/2024 12:54:57 Routine care 709314209 Z34.91 [id number] Zita Clements [address],[place] [address] 02/22/2024 10:47:23 02/22/2024 12:41:58 screening for malformation 696551169 Z36.3 Z3A.20 [id number] Antolin Cloud MD [address],[place] [address] 02/22/2024 10:48:24 02/22/2024 14:35:31 Asthma 149630352 J45.909 Routine an tenatal care 554024243 Z34.91 [id number] Antolin Cloud MD [address],[place] [address] 03/21/2024 10:59:04 03/22/2024 07:01:38 Urinary symptoms 484935798 R39.9 Routine an tenatal care 724366080 Z34.91 [id number] Antolin Cloud MD [address],[place] [address] 04/18/2024 11:21:17 04/18/2024 12:33:43 Gastroesophageal reflux disease 709204189 K21.9 Routine an tenatal care 740668307 Z34.91 [id number] Antolin Cloud MD [address],[place] [address] 05/05/2024 11:52:32 05/05/2024 13:08:31 Routine care 853019625 Z34.91 [id number] Yuridia Graff [address],[place] [address] 05/12/2024 12:07:16 05/12/2024 14:35:35 Placenta circumvallata 7634477 O43.119 Z3A.32 146955 Antolin Cloud MD [address],[place] [address] 05/12/2024 12:07:59 05/12/2024 14:32:13 Routine care 791416272 Z34.91 [id number] Antolin Cloud MD [address],[place] [address] 05/26/2024 11:03:38 05/26/2024 20:38:33 [id number] Antolin Cloud MD [address],[place] [address] 05/26/2024 11:03:52 05/26/2024 12:28:27 Routine care 211890275 Z34.91 [id number] Zita Clements [address],[place] [address] 06/09/2024 11:00:42 06/09/2024 13:09:40 Placenta circumvallata 7486042 O43.113 Z3A.36 [id number] Antolin Cloud MD [address],[place] [address] 06/09/2024 11:01:06 06/09/2024 14:50:51 Routine care 710550647 Z34.91 Health Concerns Section Related Observation LastModified by Organization Detai ls LastModified Time None Recorded Concern Status LastModified by Organization Details LastModified Time None Recorded Advance Directives Directive None Recorded Payers Encounter Date Sequence Insurance Name Policy Number Policy Balderas Covered Member ID Balderas Member ID Guarantor Name 05/12/2024 1 [facility] ON OR AFTER 10/04/20 (MEDICAID REPLACEMENT - HMO) Nitza Jason [id number] Nitzabernadette Jason 05/26/2024 1 [facility] ON OR AFTER 20 (MEDICAID REPLACEMENT - HMO) Nitza Jason [id number] Nitzabernadette Jason 05/26/2024 1 [facility] - DOS ON OR AFTER 20 (MEDICAID REPLACEMENT - HMO) Nitza Jason [id number] Nitza Casie 06/09/2024 1 [facility] ON OR AFTER 10/04/20 (MEDICAID REPLACEMENT - HMO) Nitza Jason [id number] Nitza Jason 06/09/2024 1 [facility] - DOS ON OR AFTER 20 (MEDICAID REPLACEMENT - HMO) Nitza Jason [id number] Nitza Jason OBGyn Episode Ob Episode Information Episode Created Date Number of Fetuses Patient Bloodtype Patient rh Status Prepregnancy Weight lbs Domestic Partner Domestic Partner Phone Father Name Industrial Millwright Status 01/04/20 24 1 O Negative 174 OPEN Fetus Data First Name Last Name Admitted to NICU Weight (g) Sex Living Outcome Pediatric Complications Fetus ID Race Codes Race Delivery Type [id number] Problems Problem Notes EIF noted recheck at 32wk ob *05/28 Elevated PCR. Pt states she was informed during L & D eval that because her BP's are normal, her PCR is likely elevated due to UTI and a 24 hr urine for total protein was not ordered. Problem Name Start Date End Date Resolution Snomed Code Not e depression 54460893 H/O growth restriction 45307373 previous pregna cy Cystic fibrosis carrier detection, blood 85915048 low r isk per UNITYper pt FOb tested previous - pt will confirm Placenta circumvallata 2242403 Herpes simplex 76124041 outbr eak at 8 weeks gestation in this pregancy, patient is on supressive therapy, acyclovir 1000 Palpitations 93039581 Asthma 120128755 Carlos Calculation Initial Carlos Date Initial Exam [...] Weight in lbs Pre/Post Dialysis Refused Weight 174.389462593295 BP Diastolic BP Location Tested BP Systolic [...] She was given recommendations on exercise, diet, [id number] medications. We reviewed her obstetric history. We reviewed her medical history. We reviewed her social history. She will begin routine care at her next visit. Normal pelvic exam today Flowsheet Date 01/26/2024 Garza Score Blood Edema Fundus Height Fundus Units Glucose Ketones Leukocytes Nitrite Labor Signs Protein Cervic Dilation Cervic Effacement Cervic Station Type Weight in lbs Pre/Post Dialysis Refused Weight 177.89698654140 BP Diastolic BP Location Tested BP Systolic [...] Type Weight in lbs Pre/Post Dialysis Refused 179.544252383513 BP Diastolic BP Location Tested BP Systolic [...] Type Weight in lbs Pre/Post Dialysis Refused 185.469114981305 BP Diastolic BP Location Tested BP Systolic [...] Type Weight in lbs Pre/Post Dialysis Refused 191.300203742134 BP Diastolic BP Location Tested BP Systolic [...] Type Weight in lbs Pre/Post Dialysis Refused 195.881183472616 BP Diastolic BP Location Tested BP Systolic [...] Type Weight in lbs Pre/Post Dialysis Refused 195.910434635939 BP Diastolic BP Location Tested BP Systolic [...] Type Weight in lbs Pre/Post Dialysis Refused 200.561698674109 BP Diastolic BP Location Tested BP Systolic BP Type 87 L arm 136 sitting Fetus Heart Rate Present A 152 Present Fetus Movement A Yes Comments no complaints, no problems, routine care, no contractions, no vaginal bleeding, no loss of fluid, no cramping Flowsheet Date 06/09/2024 Garza Score Blood Edema Fundus Height Fundus Units Glucose Ketones Leukocytes Nitrite Labor Signs Protein Cervic Dilation Cervic Effacement Cervic Station Type Weight in lbs Pre/Post Dialysis Refused BP Diastolic BP Location Tested BP Systolic BP Type Fetus Heart Rate Present Fetus Movement Comments Flowsheet Date 06/09/2024 Garza Score Blood Edema Fundus Height Fundus Units Glucose Ketones Leukocytes Nitrite Labor Signs Protein Cervic Dilation Cervic Effacement Cervic Station Type Weight in lbs Pre/Post Dialysis Refused 207.249937606102 BP Diastolic BP Location Tested BP Systolic BP Type 88 L arm 134 sitting Fetus Heart Rate Present A 145 [...] Domestic Partner Domestic Partner Phone Father Name Industrial Millwright Status 01/04/20 24 1 CLOSED Fetus Data First Name Last Name Admitted to NICU Weight (g) Sex Living Outcome Pediatric Complications Fetus ID Race Codes Race Delivery Type 2948.34 8 F Full Term 25039 Vaginal Delivery Carlos Calculation Initial Carlos Date [...] Domestic Partner Domestic Partner Phone Father Name Industrial Millwright Status 01/04/20 24 1 CLOSED Fetus Data First Name Last Name Admitted to NICU Weight (g) Sex Living Outcome Pediatric Complications Fetus ID Race Codes Race Delivery Type 2891.64 9 F Full Term 53497 Vaginal Delivery Carlos Calculation Initial Carlos Date [...]
--- OUTSIDE RECORDS SUMMARY | 2024-06-14 17:23 | XMS_ITS | CONTINUITY OF CARE DOCUMENT ---
Author Name mojgan ulrich Address Unknown Organization [facility] Address [address] [place] [address] Phone [phone] Care Team Providers Care Ceo & Founder Name Role Phone Darrell NATARAJAN, Constantin Unavailable [phone] JL IVY MD Unavailable JL IVY MD Unavailable [phone] INSURANCE PROVIDERS Payer name Policy type / Coverage type Juan red alliance party ID [employer]EV[employer] MEDICAID (2) Medicaid [id number]
--- OUTSIDE RECORDS SUMMARY | 2024-06-14 17:23 | XMS_ITS | Referral Summary ---
Author Organization [facility] Address [address] [place] [address] Care Team Providers Care Welding Equipment Repairer Name Role Phone Unavailable Primary Care Provider Unavailabl e Source Comments [facility],non-owned Affiliates and Associated Physician Practices is amultiple site organization consisting of ambulatory clinics and hospital sitesin [place], [place], [place] and [place]. This disclosure is being madepursuant to the Care Everywhere program and may not contain all information available regarding this patient. Last updated 17.[facility] Allergies Active Allergy Reactions Criticality Noted Date [...] Not on file NITZA JASON Personal/Family [address] [place] [id number] Nitza Jason Personal/Family Self [address] [place] [phone]
--- OUTSIDE RECORDS SUMMARY | 2024-06-14 17:23 | XMS_ITS | Clinical Summary ---
Author Organization [facility] Address [address] [place] [address] Care Team Providers Care Service Order Expediter Name Role Phone Unavailable Primary Care Provider Unavailabl e Source Comments [facility],non-owned Affiliates and Associated Physician Practices is amultiple site organization consisting of ambulatory clinics and hospital sitesin [place], [place], [place] and [place]. This disclosure is being madepursuant to the Care Everywhere program and may not contain all information available regarding this patient. Last updated 17.[facility] Allergies Active Allergy Reactions Criticality Noted Date [...] to complete this topic CASIENITZA Personal/Family [address] [place] [id number] Casie Nitza Personal/Family Self [address] [place] [phone]
--- OUTSIDE RECORDS SUMMARY | 2024-06-14 17:23 | XMS_ITS | Patient Health Summary ---
Author Organization [facility] Address [address] [place] [address] Care Team Providers Care Sewing Machine Repairer Name Role Phone Unavailable Primary Care Provider Unavailabl e Note from [facility],non-owned Affiliates and Associated Physician Practices is amultiple site organization consisting of ambulatory clinics and hospital sitesin [place], [place], [place] and [place]. This disclosure is being madepursuant to the Care Everywhere program and may not contain all information available regarding this patient. Last updated 17.[facility] Allergies * Cephalosporins(Rash) -Medium Criticality * Ceftriaxone(Rash) [...] Strep A Internal Control Present Lot # [id number] Expiration Date 12/04/2020 Throat ENTIRE THROAT (SURFACE REGION OF NECK) / Unknown 07/07/2019 Shaneka Baxter PHP WEBSITE DEVELOPER-DRIVER TRAINEE LAB - PO INT OF CARE ORDERABLES * INFLUENZA A+B - POINT OF CARE (AMB) (07/07/2019) Influenza A Antigen Rapid Negative Negative Influenza B Antigen Rapid Negative Negative Influenza Internal Control present NEGATIVE - POSITIVE Influenza Lot Number [id number] Influenza Expiration Date 03/11/2021 Other NASOPHARYNGEAL SWAB / Unknown 07/07/2019 Shaneka Cadena Sahil PHP WEBSITE DEVELOPER-DRIVER TRAINEE LAB - PO INT OF CARE ORDERABLES * SONOGRAM - LIMITED (09/28/2018 2:27 PM CDT) Anatomical Region Laterality Modality Other 09/28/2018 2:27 PM CDT Narrative 09/28/2018 3:32 PM CDT [facility] PHONE: FAX: Pat. Name: NITZA JASON Pat. No: [id number] Study Date: 09/28/2018 2:27pm , Age: 07 2000, 17 Pregnancies: 2, Para 1 Height: 60 in Weight: 136 lb LMP: Unknown GA by Base: 34w1d LISA: 11/08/2018 GA Selected: 34w1d (From Baselin) LISA: 11/08/2018 Referring MD: Trey Douglas MD Office Auditor: Netta Candelario [facility] CPT4: 29487 BMI: 26.56 Hist/Ind: Growth Restriction on Outside [...] <Electronic Signature> 09/28/2018 03:32pm Ted Jara MD [facility] ORDERABLES * SONOGRAM - COMPLETE (09/21/2018 1:42 PM CDT) Only the most recent of5 resultswithin the time period is included. Anatomical Region Laterality Modality Other 09/21/2018 1:42 PM CDT Narrative 09/21/2018 2:52 PM CDT [facility] PATIÑO Olegario [facility] PHONE: FAX: Pat. Name: NITZA JASON Pat. No: [id number] Study Date: 09/21/2018 1:42pm , Age: 07 2000, 17 Pregnancies: 2, Para 1 Height: 60 in Weight: 136 lb LMP: Unknown GA by Base: 33w1d LISA: 11/08/2018 GA by US: [email or web address] LISA: 11/12/2018 GA Selected: 33w1d (From Known E) LISA: 11/08/2018 Referring MD: Trey Douglas MD Office Auditor: Samantha Goss RDMS CPT4: 52856 BMI: 26.56 Hist/Ind: Growth Restriction on Outside Scan MEASUREMENTS & AGE GROWTH EVALUATION Measurement GA Range Srce %for GA Ratios ----- ---- ------- BPD 7.9 cm 31w4d (02i0q-75u7a) Hadl BPD 7% FL/BPD 0.82 (0.71 - 0.87) HC 29.9 cm 33w1d (07z2i-63y1j) Hadl HC 15% FL/AC 0.23 (0.20 - 0.24) AC 28.0 cm 32w0d (95y9x-46g0x) Hadl AC 20% HC/AC 1.07 (0.95 - 1.13) FL 6.4 cm 33w1d (18o9h-97u2c) Hadl FL 38% CI 0.71 (0.70 - 0.86) HL 5.3 cm 31w1d (75e2e-12j7m) Bob HL 16% GA for sonogram 32w4d (85i1u-97b3c) Weight Estimate: based on (BPD,HC,AC,FL) Avg Weight: [...] <Electronic Signature> 09/21/2018 02:53pm Ted Jara MD [facility] ORDERABLES
== END 2024-06-14 16:21 | disposition home or self-care (01) ==
LOC: ANHOBOP 15:24 → ANHOBPP 15:25
PROVIDERS: Visit Provider Obstetrics & Gynecology
DX: O13.9 Gestational [pregnancy-induced] hypertension without significant proteinuria, unspecified trimester (principal); Z3A.00 Weeks of gestation of pregnancy not specified
CPT/HCPCS: 36415; 59025; 80053; 81003; 82570; 84156; 84550; 85025; 99199

== ENCOUNTER 2024-06-17 04:47 | Inpatient (IN) | payer OTHER, SELFPAY ==
[2024-06-17] VITALS (123 sets, daily range): BP systolic 96–154; BP diastolic 56–104; PULSE 70–114; TEMP 36.3–37.1; O2SAT 93–100; BMI 34.8
--- OUTSIDE RECORDS SUMMARY | 2024-06-17 04:53 | XMS_ITS | Patient Health Summary ---
Author Organization [facility] Address [address] [place] [address] Care Team Providers Care Auto Parts Manager Name Role Phone Unavailable Primary Care Provider Unavailabl e Note from [facility],non-owned Affiliates and Associated Physician Practices is amultiple site organization consisting of ambulatory clinics and hospital sitesin [place], [place], [place] and [place]. This disclosure is being madepursuant to the Care Everywhere program and may not contain all information available regarding this patient. Last updated 17.[facility] Allergies * Cephalosporins(Rash) -Medium Criticality * [...] 2:27 PM CDT Height 153.7 cm (5' 0.5) 07/07/2019 2:27 PM CDT Body Mass Index [...] Strep A Internal Control Present Lot # [id number] Expiration Date 12/04/2020 Throat ENTIRE THROAT (SURFACE REGION OF NECK) / Unknown 07/07/2019 Shaneka Baxter PODIATRIST ASSISTANT-CITY ALDERMAN LAB - PO INT OF CARE ORDERABLES * INFLUENZA A+B - POINT OF CARE (AMB) (07/07/2019) Influenza A Antigen Rapid Negative Negative Influenza B Antigen Rapid Negative Negative Influenza Internal Control present NEGATIVE - POSITIVE Influenza Lot Number [id number] Influenza Expiration Date 03/11/2021 Other NASOPHARYNGEAL SWAB / Unknown 07/07/2019 Shaneka Cadena Sahil PODIATRIST ASSISTANT-CITY ALDERMAN LAB - PO INT OF CARE ORDERABLES * SONOGRAM - LIMITED (09/28/2018 2:27 PM CDT) Anatomical Region Laterality Modality Other 09/28/2018 2:27 PM CDT Narrative 09/28/2018 3:32 PM CDT [facility] PHONE: FAX: Pat. Name: NITZA JASON Pat. No: [id number] Study Date: 09/28/2018 2:27pm , Age: 07 2000, 17 Pregnancies: 2, Para 1 Height: 60 in Weight: 136 lb LMP: Unknown GA by Base: 34w1d LISA: 11/08/2018 GA Selected: 34w1d (From Baselin) LISA: 11/08/2018 Referring MD: Trey Douglas MD Bottling Line Attendant: Netta Candelario [facility] CPT4: 82490 BMI: 26.56 Hist/Ind: Growth Restriction on Outside [...] <Electronic Signature> 09/28/2018 03:32pm Ted Jara MD [facility] ORDERABLES * SONOGRAM - COMPLETE (09/21/2018 1:42 PM CDT) Only the most recent of5 resultswithin the time period is included. Anatomical Region Laterality Modality Other 09/21/2018 1:42 PM CDT Narrative 09/21/2018 2:52 PM CDT [facility] PATIÑO [facility]leg[facility] PHONE: FAX: Pat. Name: NITZA JASON Pat. No: [id number] Study Date: 09/21/2018 1:42pm , Age: 07 2000, 17 Pregnancies: 2, Para 1 Height: 60 in Weight: 136 lb LMP: Unknown GA by Base: 33w1d LISA: 11/08/2018 GA by US: 32w4d LISA: 11/12/2018 GA Selected: 33w1d (From Known E) LISA: 11/08/2018 Referring MD: Trey Douglas MD Bottling Line Attendant: Samantha Goss RDMS CPT4: 06330 BMI: 26.56 Hist/Ind: Growth Restriction on Outside Scan MEASUREMENTS & AGE GROWTH EVALUATION Measurement GA Range Srce %for GA Ratios ----- ---- ------- BPD 7.9 cm 31w4d (43z4f-50e2p) Hadl BPD 7% FL/BPD 0.82 (0.71 - 0.87) HC 29.9 cm 33w1d (08o8u-48x1z) Hadl HC 15% FL/AC 0.23 (0.20 - 0.24) AC 28.0 cm 32w0d (67u9p-35k7y) Hadl AC 20% HC/AC 1.07 (0.95 - 1.13) FL 6.4 cm 33w1d (52d5r-31q1k) Hadl FL 38% CI 0.71 (0.70 - 0.86) HL 5.3 cm 31w1d (69p8r-30d4y) Bob HL 16% GA for sonogram 32w4d (75b4n-87e3k) Weight Estimate: based on (BPD,HC,AC,FL) Avg Weight: [...] <Electronic Signature> 09/21/2018 02:53pm Ted Jara MD [facility] ORDERABLES
--- OUTSIDE RECORDS SUMMARY | 2024-06-17 04:53 | XMS_ITS | Continuity of Care Document ---
Author Organization [facility] [place] Address [address] [place] [address] Assessment Encounter Date Assessment Date Assessment LastModified by Organization Details LastModified Time 06/16/2024 06/16/2024 Patient is ___weeks . Discussed plan. [email or web address] Not available 06/16/2024 15:15:24 Plan of Treatment Reminders Order Date Submit Date Provider Last Modified By Organization Details Last Modified Time Details Appointments INDUCTION 2024 05:00A Marielena CLOUD MD Not available Not available Not available OB ROUTINE 2024 11:15A Marielena CLOUD MD Not available Not available Not available OB ROUTINE 2024 10:45A Marielena CLOUD MD Not available Not available Not available Lab None recorded. Referral None recorded. Procedures None recorded. Surgeries None recorded. Imaging None recorded. Medication Orders None recorded. Patient TargetsNo targets recorded. Patient InstructionsNo instructions recorded. Reason for Referral None Reported. Results Created Date Observation Date Name Description Value Unit Range Abnormal Flag Note LastModifiedBy Organization Detail LastModifiedTime 01/04/2001/04/2024 US, obste tric, nucha l trans lucen cy No observ ation record ed. [email or web address] [place] [address], [place], [address], 01/04/2024 19:07:01 01/04/20 24 01/04/2024 US, obste tric, follo w-up No observ ation record ed. [email or web address] [facility] [address], [place], [address], 01/05/2024 17:59:33 02/22/20 24 02/22/2024 US, obste tric, 2nd or 3rd trime ster No observ ation record ed. [email or web address] [place] [address], [place], [address], 02/22/2024 13:06:23 02/22/20 24 02/22/2024 US, obste tric, 2nd or 3rd trime ster No observ ation record ed. TIAGO [address], [place], [address], 02/22/2024 17:27:05 05/12/19 25 05/12/2024 US, obste tric, follo w-up No observ ation record ed. [email or web address] [address], [place], [address], 06/01/2024 16:31:39 05/12/19 25 05/12/2024 US, obste tric, follo w-up No observ ation record ed. [email or web address] [place] [address], [place], [address], 05/12/2024 18:35:54 06/10/19 25 06/09/2024 US, obste tric, follo w-up No observ ation record ed. [email or web address] [place] [address], [place], [address], 06/09/2024 15:32:01 06/10/19 25 06/09/2024 US, obste tric, follo w-up No observ ation record ed. [email or web address] [address], [place], [address], 06/14/2024 16:55:48 06/17/19 25 06/16/2024 non-s tress test No observ ation record ed. [place] [address], [place], [address], 06/16/2024 14:53:07 Result Notes None recorded. Problems Name Problem SNOMED Code Status Onset Date Resolution Date Notes Provider Name and Address Organization Details Recorded Time 95209155 Active 2023 Sandy ibarra, [facility] 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 4 13:31:34 growth restricti on 59589103 Active previous pregnacy Ashley ibarra, [facility] 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 4 16:52:33 Palpitati ons 15254121 Active Antolin Cloud MD [address], [place], [address], [facility] 4 12:49:18 Postpartu m depressio n 19351674 Active H/O Antolin Cloud MD [address], [place], [address], [facility] 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 4 13:10:24 Asthma 241572809 Active Antolin Cloud MD [address], [place], [address], [facility] 5 13:06:41 Cholestas is 52668511 Active Antolin Cloud MD [address], [place], [address], [facility] 5 15:31:39 Problem Notes None recorded. Procedures Surgical History Date Name Laterality Status Provider Name and Address Organization Details Recorded Time 01/04/2024 Date of Last Pap Smear completed Leny Espinoza [facility] 02/22/2024 12:44:22 Imaging Results None recorded. Procedure Notes None recorded. Medical Equipment None Reported. Allergies Allergen ID Allergen Name Allergen Category Reaction Reaction Severity Criticality Documentation Date Start Date Code Code System Note Provider Name and Address Organization Details Recorded Time 92716 Product containin g cephalosp rebeca (product) medicatio n rash Not available Not available 01/04/2024 19930 9009 SNOMED Naima ibarra, [facility] 4 12:50:18 Medications Name Sig Start [...] and Address Organization Details Last Updated DateTime 06/16/2024 68441.8053 3 g 138 mm[Hg] 90 mm[Hg] Leny Espinoza [facility] 06/16/2024 15:17:05 Social History Question Answer Notes LastModified by Organizat ion Details LastModified Time What Is Your Level Of Alcohol Consumption? Occasional [email or web address] Information not available 01/04/2024 Are You Blind Or Do You Have Difficulty Seeing? No [email or web address] Information n ot available 01/04/2024 What Is Your Level Of Caffeine Consumption? Heavy Information not available 01/04/2024 How Much Tobacco Do You Chew? None [email or web address] Information not available 01/04/2024 In The 14 Days Before Symptom Onset, Have You Had Close Contact With A Laboratory-confirm ed COVID-19 While That Case Was Ill? No [email or web address] Information n ot available 01/04/2024 In The 14 Days Before Symptom Onset, Have You Had Close Contact With A Person Who Is Under Investigation For COVID-19 While That Person Was Ill? No [email or web address] Information not available 01/04/2024 Have You Been To An Area Known To Be High Risk For COVID-19? No [email or web address] Information not available 01/04/2024 Are You Deaf Or Do You Have Serious Difficulty Hearing? No [email or web address] Information not available 01/04/2024 What Type Of Diet Are You Following? REGULAR [email or web address] Information n ot available 01/04/2024 What Is The Highest Grade Or Level Of School You Have Completed Or The Highest Degree You Have Received? [id number] [email or web address] Information not available 01/04/2024 What Is Your Occupation? Unemployed Information not available 01/04/2024 Are There Any Guns Present In Your Home? No [email or web address] Information not available 01/04/2024 Do You Use Protection During Sex? No [email or web address] Information not available 01/04/2024 Do You Use Your Seat Belt Or Car Seat Routinely? Yes [email or web address] Information not available 01/04/2024 Do You Have Smoke And Carbon Monoxide Detectors In Your Home? Yes [email or web address] Information not available 01/04/2024 How Much Tobacco Do You Smoke? No [email or web address] Information not available 01/04/2024 Do You Feel Stressed (tense, Restless, Nervous, Or Anxious, Or Unable To Sleep At Night)? NZ03670-7 [email or web address] Information not available 01/04/2024 Do You Use Any Illicit Or Recreational Drugs? No [email or web address] Information not available 01/04/2024 Do You Use Sunscreen Routinely? Yes [email or web address] Information not available 01/04/2024 Have You Used IV Drugs? No Information not available 01/04/2024 Sex: Unknown Functional Status Question Answer Note LastModified by Organizat ion Details LastModified Time Are you able to walk? YESWOREST [email or web address] Information not available 01/04/2024 What is your exercise level? Occasional [email or web address] Information not available 01/04/2024 Mental Status None recorded. Family History Relationship Description Onset Age of this Age Resolved Age Notes LastModified by Organization Details LastModified Time Unspecified Relation Family history unknown [email or web address] Not available 2023 12:50:24 Medical History Condition Response Anxiety Disorder Y Depression/ depression Y History of STI Y Gynecological History Statement/Question Response Flow Moderate [...] SNOMED-CT Code Diagnosis ICD10 Code Diagnosis Note [id number] Antolin Cloud MD [place] [address] [address] 05/26/2024 11:03:38 05/26/2024 20:38:33 [id number] Antolin Cloud MD [place] [address] [address] 05/26/2024 11:03:52 05/26/2024 12:28:27 Routine care 309510630 Z34.91 [id number] Zita Clements [place] [address] [address] 06/09/2024 11:00:42 06/09/2024 13:09:40 Placenta circumvallata 9297166 O43.113 Z3A.36 551160 Antolin Cloud MD [place] [address] [address] 06/09/2024 11:01:06 06/09/2024 14:50:51 Routine care 540956390 Z34.91 284051 Shabnam Arnie [place] [address],[place] [address] 06/16/2024 14:05:14 06/16/2024 14:55:14 growth restriction 15853206 O36.5999 218141 Antolin Cloud MD [place] [address] [address] 06/16/2024 14:05:50 06/16/2024 15:35:45 Routine care 638151594 Z34.91 Health Concerns Section Related Observation LastModified by Organization Detai ls LastModified Time None Recorded Concern Status LastModified by Organization Details LastModified Time None Recorded Payers Encounter Date Sequence Insurance Name Policy Number Policy Balderas Covered Member ID Balderas Member ID Guarantor Name 06/16/2024 1 [facility] ON OR AFTER 10/04/20 (MEDICAID REPLACEMENT - HMO) Nitza Jason [id number] Nitza Rodriguez Episode Ob Episode Information Episode Created Date Number of Fetuses Patient Bloodtype Patient rh Status Prepregnancy Weight lbs Domestic Partner Domestic Partner Phone Father Name Tie Puller Status 01/04/20 24 1 O Negative 174 OPEN Fetus Data First Name Last Name Admitted to NICU Weight (g) Sex Living Outcome Pediatric Complications Fetus ID Race Codes Race Delivery Type 25303 Problems Problem Notes EIF noted recheck at 32wk ob *05/28 Elevated PCR. Pt states she was informed during L & D eval that because her BP's are normal, her PCR is likely elevated due to UTI and a 24 hr urine for total protein was not ordered. Problem Name Start Date End Date Resolution Snomed Code Not e depression 82558536 H/O growth restriction 99260687 previous pregna cy Cholestasis 32946228 Cystic fibrosis carrier detection, blood 68016264 low r isk per [facility]per pt FOb tested previous - pt will confirm Placenta circumvallata 8650494 Herpes simplex 86179437 outbr eak at 8 weeks gestation in this pregancy, patient is on supressive therapy, acyclovir 1000 Palpitations 14941889 Asthma 177612212 Carlos Calculation Initial Carlos Date Initial Exam [...] Weight in lbs Pre/Post Dialysis Refused Weight 174.320220230265 BP Diastolic BP Location Tested BP Systolic [...] She was given recommendations on exercise, diet, kiln-xin-kbaujlc medications. We reviewed her obstetric history. We reviewed her medical history. We reviewed her social history. She will begin routine care at her next visit. Normal pelvic exam today Flowsheet Date 01/26/2024 Garza Score Blood Edema Fundus Height Fundus Units Glucose Ketones Leukocytes Nitrite Labor Signs Protein Cervic Dilation Cervic Effacement Cervic Station Type Weight in lbs Pre/Post Dialysis Refused Weight 177.46877416486 BP Diastolic BP Location Tested BP Systolic [...] Type Weight in lbs Pre/Post Dialysis Refused 179.393424070829 BP Diastolic BP Location Tested BP Systolic [...] Type Weight in lbs Pre/Post Dialysis Refused 185.249636902790 BP Diastolic BP Location Tested BP Systolic [...] Type Weight in lbs Pre/Post Dialysis Refused 191.501954347889 BP Diastolic BP Location Tested BP Systolic [...] Type Weight in lbs Pre/Post Dialysis Refused 195.119021502364 BP Diastolic BP Location Tested BP Systolic [...] Type Weight in lbs Pre/Post Dialysis Refused 195.371766510897 BP Diastolic BP Location Tested BP Systolic [...] Type Weight in lbs Pre/Post Dialysis Refused 200.399709595516 BP Diastolic BP Location Tested BP Systolic [...] Type Weight in lbs Pre/Post Dialysis Refused 207.717010819481 BP Diastolic BP Location Tested BP Systolic BP Type 88 L arm 134 sitting Fetus Heart Rate Present A 145 Fetus Movement A Yes Comments no complaints, no problems, routine care, no contractions, no vaginal bleeding, no loss of fluid, no cramping Flowsheet Date 06/16/2024 Garza Score Blood Edema Fundus Height Fundus Units Glucose Ketones Leukocytes Nitrite Labor Signs Protein Cervic Dilation Cervic Effacement Cervic Station Type Weight in lbs Pre/Post Dialysis Refused BP Diastolic BP Location Tested BP Systolic BP Type Fetus Heart Rate Present Fetus Movement Comments Flowsheet Date 06/16/2024 Garza Score Blood Edema Fundus Height Fundus Units Glucose Ketones Leukocytes Nitrite Labor Signs Protein Cervic Dilation Cervic Effacement Cervic Station Type Weight in lbs Pre/Post Dialysis Refused 209.178871339568 BP Diastolic BP Location Tested BP Systolic BP Type 90 L arm 138 sitting Fetus Heart Rate Present A 145 [...]
--- OUTSIDE RECORDS SUMMARY | 2024-06-17 04:54 | XMS_ITS | Clinical Summary ---
Author Organization [email or web address] Address [address] [place] [address] Care Team Providers Care Entrepreneur Name Role Phone Unavailable Primary Care Provider Unavailabl e Source Comments [email or web address],non-owned Affiliates and Associated Physician Practices is amultiple site organization consisting of ambulatory clinics and hospital sitesin [place], [place], [place] and [place]. This disclosure is being madepursuant to the Care Everywhere program and may not contain all information available regarding this patient. Last updated 17.[email or web address] Allergies Active Allergy Reactions Criticality Noted Date [...] to complete this topic MENINGOCOCCAL (Group B) VACC INE SHARED DECISION-MAKING Aged Out No longer eligibl e based on patient's age to complete this topic MENINGOCOCCAL GROUPS A/C/Y/W VACCINE Aged Out No longer eligible b ased on patient's age to complete this topic PNEUMOCOCCAL VACCINE Aged Out No long er eligible based on patient's age to complete this topic NITZA JASON Personal/Family [address] [place] [phone] Nitza Jason Personal/Family Self [address] [place] [address]
--- OUTSIDE RECORDS SUMMARY | 2024-06-17 04:54 | XMS_ITS | CONTINUITY OF CARE DOCUMENT ---
Author Name mojgan ulrich Address Unknown Organization [facility] Address [address] [place] [address] Phone [phone] Care Team Providers Care As400 Administrator Name Role Phone Darrell NATARAJAN, Constantin Unavailable JL IVY MD Unavailable JL IVY MD Unavailable [phone] INSURANCE PROVIDERS Payer name Policy type / Coverage type Juan red libertarian [place] [employer] MEDICAID (2) Medicaid [id number]
--- OUTSIDE RECORDS SUMMARY | 2024-06-17 04:54 | XMS_ITS | Continuity of Care Document ---
Author Organization [facility] [place] Address [address] [place] [address] [place] [address] Assessment No assessment recorded. Plan of Treatment Reminders Order Date Submit Date Provider Last Modified By Organization Details Last Modified Time Details Appointments INDUCTION 2024 05:00A Marielena CLOUD MD Not available Not available Not available OB ROUTINE 2024 11:15A Mairelena CLOUD MD Not available Not available Not available OB ROUTINE 2024 10:45A Marielena CLOUD MD Not available Not available Not available Lab None recorded. Referral None recorded. Procedures None recorded. Surgeries None recorded. Imaging non-stres s test 2024 025 [email or web address] [place] [facility] [address], [place], [address], 06/16/2024 14:55:14 Medication Orders None recorded. Patient TargetsNo targets recorded. Patient InstructionsNo instructions recorded. Reason for Referral None Reported. Results Created Date Observation Date Name Description Value Unit Range Abnormal Flag Note LastModifiedBy Organization Detail LastModifiedTime 01/04/2001/04/2024 US, obste tric, nucha l trans lucen cy No observ ation record ed. [email or web address] [place] [address], [place], [address], 01/04/2024 19:07:01 01/04/20 24 01/04/2024 US, obste tric, follo w-up No observ ation record ed. [email or web address] [facility] [address], [place], [address], 01/05/2024 17:59:33 02/22/20 24 02/22/2024 US, obste tric, 2nd or 3rd trime ster No observ ation record ed. [email or web address] [place] [address], [place], [address], 02/22/2024 13:06:23 02/22/20 24 02/22/2024 US, obste tric, 2nd or 3rd trime ster No observ ation record ed. [email or web address] [address], [place], [address], 02/22/2024 17:27:05 05/12/19 25 05/12/2024 US, obste tric, follo w-up No observ ation record ed. [email or web address] [address], [place], [address], 06/01/2024 16:31:39 05/12/19 25 05/12/2024 US, obste tric, follo w-up No observ ation record ed. [email or web address] [place] [address], [place], [address], 05/12/2024 18:35:54 06/10/19 25 06/09/2024 US, obste tric, follo w-up No observ ation record ed. [email or web address] [place] [address], [place], [address], 06/09/2024 15:32:01 06/10/19 25 06/09/2024 US, obste tric, follo w-up No observ ation record ed. [email or web address] [address], [place], [address], 06/14/2024 16:55:48 06/17/19 25 06/16/2024 non-s tress test No observ ation record ed. [email or web address] [place] [address], [place], [address], 06/16/2024 14:53:07 Result Notes None recorded. Problems Name Problem SNOMED Code Status Onset Date Resolution Date Notes Provider Name and Address Organization Details Recorded Time 83174959 Active 2023 Sandy Wu stacey, [facility] 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 4 13:31:34 growth restricti on 57665412 Active previous pregnacy Ashley Hunt stacey, [facility] 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 4 16:52:33 Palpitati ons 16023410 Active Antolin Cloud MD [address], [place], [address], [facility] 4 12:49:18 Postpartu m depressio n 29036706 Active H/O Antolin Cloud MD [address], [place], [address], [facility] 4 12:49:46 Placenta circumval remi 3950062 Active Antolin Cloud MD [address], [place], [address], [facility] 4 13:10:24 Asthma 680428892 Active Antolin Cloud MD [address], [place], [address], [facility] 5 13:06:41 Cholestas is 31413368 Active Antolin Cloud MD [address], [place], [address], [facility] 5 15:31:39 Problem Notes None recorded. Procedures Surgical History Date Name Laterality Status Provider Name and Address Organization Details Recorded Time 01/04/2024 Date of Last Pap Smear completed Leny Alexis [facility] 02/22/2024 12:44:22 Imaging Results Imaging Date Name Status LastModified by Organiz ation Details LastModified Time 06/16/2024 non-stress test completed [email or web address] [place] [address], [place], [address], 06/16/2024 14:53:07 Procedure Notes None recorded. Medical Equipment None Reported. Allergies Allergen ID Allergen Name Allergen Category Reaction Reaction Severity Criticality Documentation Date Start Date Code Code System Note Provider Name and Address Organization Details Recorded Time 37872 Product containin g cephalosp rebeca (product) medicatio n rash Not available Not available 01/04/2024 06342 9009 SNOMED Naima Ramirez stacey, [facility] 12:50:18 Medications Name Sig Start Date [...] Address Organization Details Last Updated DateTime 06/16/2024 37625.8053 3 g 138 mm[Hg] 90 mm[Hg] Leny Espinoza [facility] 06/16/2024 15:17:05 Social History Question Answer Notes LastModified by Organizat ion Details LastModified Time What Is Your Level Of Alcohol Consumption? Occasional [email or web address] Information not available 01/04/2024 Are You Blind Or Do You Have Difficulty Seeing? No [email or web address] Information n ot available 01/04/2024 What Is Your Level Of Caffeine Consumption? Heavy [email or web address] Information not available 01/04/2024 How Much Tobacco Do You Chew? None [email or web address] Information not available 01/04/2024 In The 14 Days Before Symptom Onset, Have You Had Close Contact With A Laboratory-confirm ed COVID-19 While That Case Was Ill? No [email or web address] Information n ot available 01/04/2024 In The 14 Days Before Symptom Onset, Have You Had Close Contact With A Person Who Is Under Investigation For COVID-19 While That Person Was Ill? No [email or web address] Information not available 01/04/2024 Have You Been To An Area Known To Be High Risk For COVID-19? No [email or web address] Information not available 01/04/2024 Are You Deaf Or Do You Have Serious Difficulty Hearing? No [email or web address] Information not available 01/04/2024 What Type Of Diet Are You Following? REGULAR [email or web address] Information n ot available 01/04/2024 What Is The Highest Grade Or Level Of School You Have Completed Or The Highest Degree You Have Received? ON75577-3 [email or web address] Information not available 01/04/2024 What Is Your Occupation? Unemployed Information not available 01/04/2024 Are There Any Guns Present In Your Home? No Information not available 01/04/2024 Do You Use Protection During Sex? No Information not available 01/04/2024 Do You Use Your Seat Belt Or Car Seat Routinely? Yes [email or web address] Information not available 01/04/2024 Do You Have Smoke And Carbon Monoxide Detectors In Your Home? Yes [email or web address] Information not available 01/04/2024 How Much Tobacco Do You Smoke? No [email or web address] Information not available 01/04/2024 Do You Feel Stressed (tense, Restless, Nervous, Or Anxious, Or Unable To Sleep At Night)? [id number] [email or web address] Information not available 01/04/2024 Do You Use Any Illicit Or Recreational Drugs? No [email or web address] Information not available 01/04/2024 Do You Use Sunscreen Routinely? Yes Information not available 01/04/2024 Have You Used IV Drugs? No Information not available 01/04/2024 Sex: Unknown Functional Status Question Answer Note LastModified by Organizat ion Details LastModified Time Are you able to walk? YESWOREST [email or web address] Information not available 01/04/2024 What is your exercise level? Occasional [email or web address] Information not available 01/04/2024 Mental Status None recorded. Family History Relationship Description Onset Age of this Age Resolved Age Notes LastModified by Organization Details LastModified Time Unspecified Relation Family history unknown [email or web address] Not available 2023 12:50:24 Medical History Condition [...] SNOMED-CT Code Diagnosis ICD10 Code Diagnosis Note [id number] Antolin Cloud MD [place] [address] [address] 05/26/2024 11:03:38 05/26/2024 20:38:33 [id number] Antolin Cloud MD [place] [address] [address] 05/26/2024 11:03:52 05/26/2024 12:28:27 Routine care 343179603 Z34.91 [id number] Zita Clements [place] [address] [address] 06/09/2024 11:00:42 06/09/2024 13:09:40 Placenta circumvallata 9701489 O43.113 Z3A.36 [id number] Antolin Cloud MD [place] [address],[place] [address] 06/09/2024 11:01:06 06/09/2024 14:50:51 Routine care 135205380 Z34.91 [id number] Shabnam Gaitan [place] [address],[place] [address] 06/16/2024 14:05:14 06/16/2024 14:55:14 growth restriction 11357082 O36.5999 [id number] Antolin Cloud MD [place] [address] [address] 06/16/2024 14:05:50 06/16/2024 15:35:45 Routine care 483706072 Z34.91 Health Concerns Section Related Observation LastModified by Organization Detai ls LastModified Time None Recorded Concern Status LastModified by Organization Details LastModified Time None Recorded Payers Encounter Date Sequence Insurance Name Policy Number Policy Balderas Covered Member ID Balderas Member ID Guarantor Name 06/16/2024 1 [facility] - DOS ON OR AFTER 20 (MEDICAID REPLACEMENT - HMO) Nitza Jason [id number] Nitza Jason OBGyn Episode Ob Episode Information Episode Created Date Number of Fetuses Patient Bloodtype Patient rh Status Prepregnancy Weight lbs Domestic Partner Domestic Partner Phone Father Name Digital Project Manager Status 01/04/20 24 1 O Negative 174 OPEN Fetus Data First Name Last Name Admitted to NICU Weight (g) Sex Living Outcome Pediatric Complications Fetus ID Race Codes Race Delivery Type [id number] Problems Problem Notes EIF noted recheck at 32wk ob *05/28 Elevated PCR. Pt states she was informed during L & D eval that because her BP's are normal, her PCR is likely elevated due to UTI and a 24 hr urine for total protein was not ordered. Problem Name Start Date End Date Resolution Snomed Code Not e depression 79675155 H/O growth restriction 66214113 previous pregna cy Cholestasis 01703834 Cystic fibrosis carrier detection, blood 16563074 low r isk per [facility]per pt FOb tested previous - pt will confirm Placenta circumvallata 9992648 Herpes simplex 19687555 outbr eak at 8 weeks gestation in this pregancy, patient is on supressive therapy, acyclovir 1000 Palpitations 20443847 Asthma 307531667 Carlos Calculation Initial Carlos Date Initial Exam [...] 24 19 [email or web address] 03/21/2024 07/08/19 25 6 Pre- Flowsheet Flowsheet Date 01/04/2024 Garza Score Blood Edema Fundus Height Fundus Units Glucose Ketones Leukocytes Nitrite Labor Signs Protein Cervic Dilation Cervic Effacement Cervic Station 13 cm Type Weight in lbs Pre/Post Dialysis Refused Weight 174.190443663302 BP Diastolic BP Location Tested BP Systolic [...] She was given recommendations on exercise, diet, [id number] medications. We reviewed her obstetric history. We reviewed her medical history. We reviewed her social history. She will begin routine care at her next visit. Normal pelvic exam today Flowsheet Date 01/26/2024 Garza Score Blood Edema Fundus Height Fundus Units Glucose Ketones Leukocytes Nitrite Labor Signs Protein Cervic Dilation Cervic Effacement Cervic Station Type Weight in lbs Pre/Post Dialysis Refused Weight 177.49442114207 BP Diastolic BP Location Tested BP Systolic [...] Type Weight in lbs Pre/Post Dialysis Refused 179.868842312292 BP Diastolic BP Location Tested BP Systolic [...] Type Weight in lbs Pre/Post Dialysis Refused 185.253237096238 BP Diastolic BP Location Tested BP Systolic [...] Type Weight in lbs Pre/Post Dialysis Refused 191.874734374260 BP Diastolic BP Location Tested BP Systolic [...] Type Weight in lbs Pre/Post Dialysis Refused 195.924634927780 BP Diastolic BP Location Tested BP Systolic [...] Type Weight in lbs Pre/Post Dialysis Refused 195.885853644476 BP Diastolic BP Location Tested BP Systolic [...] Type Weight in lbs Pre/Post Dialysis Refused 200.928032501582 BP Diastolic BP Location Tested BP Systolic [...] Type Weight in lbs Pre/Post Dialysis Refused 207.782770927755 BP Diastolic BP Location Tested BP Systolic [...] Type Weight in lbs Pre/Post Dialysis Refused 209.010366840385 BP Diastolic BP Location Tested BP Systolic [...]
--- OUTSIDE RECORDS SUMMARY | 2024-06-17 04:54 | XMS_ITS | Data Portability ---
Author Organization [facility] Address [address] [place] [address] Assessment Encounter Date Assessment Date Assessment LastModified by Organization Details LastModified Time 06/09/2024 06/09/2024 Patient is ___weeks . Discussed plan. Not available 06/09/2024 13:29:22 06/16/2024 06/16/2024 Patient is ___weeks . Discussed plan. Not available 06/16/2024 15:15:24 Plan of Treatment Reminders Order Date Submit Date Provider Last Modified By Organization Details Last Modified Time Details Appointments INDUCTION 2024 05:00A Marielena GAVIN MD Not available Not available Not available OB ROUTINE 2024 11:15A Marielena GAVIN MD Not available Not available Not available OB ROUTINE 2024 10:45A Marielena GAVIN MD Not available Not available Not available Lab None recorded. Referral None recorded. Procedures None recorded. Surgeries None recorded. Imaging non-stres s test 2024 025 [email or web address] [address], [address], [place], [address], 06/16/2024 14:55:14 US, obstetric , follow-up 2024 025 [email or web address] [address], [address], [place], [address], 06/09/2024 20:26:16 Medication Orders None recorded. Patient TargetsNo targets recorded. Patient InstructionsNo instructions recorded. Reason for Referral None Reported. Results Created Date Observation Date Name Description Value Unit Range Abnormal Flag Note LastModifiedBy Organization Detail LastModifiedTime 06/10/1906/09/2024 CULTU RE: GROUP B STREP SCREE N, [...] Final resul t Abnor mal: Yes Resul radhag Lab: [facility] [address] [facility] [address] Tel: CULTU RE ----- ----- ----- --- [...] corby for these drugs . Not Available [facility] (Lab) [address], [place], [address], 06/13/2024 16:35:48 06/15/19 25 06/14/2024 CMP(C OMPRE HENSI VE METAB OLIC PANEL ) sodium 140 mmol/ L 133-[address] [facility] (Lab) [address] [facility], [place], [address], 06/15/2024 11:09:25 06/15/19 25 06/14/2024 CMP(C OMPRE HENSI VE METAB OLIC PANEL ) potassium 3.9 mmol/ L 3.5-5. [address] [facility] (Lab) [address] [facility], [place], [address], 06/15/2024 11:09:25 06/15/19 25 06/14/2024 CMP(C OMPRE HENSI VE METAB OLIC PANEL ) chloride 107 mmol/ L 98-[address] [facility] (Lab) [address] [facility], [place], [address], 06/15/2024 11:09:25 06/15/19 25 06/14/2024 CMP(C OMPRE HENSI VE METAB OLIC PANEL ) carbon dioxide 23 mmol/ L 21-[address] [facility] (Lab) [address] [facility], [place], [address], 06/15/2024 11:09:25 06/15/19 25 06/14/2024 CMP(C OMPRE HENSI VE METAB OLIC PANEL ) anion gap 10 mmol/ L 4-[address] [facility] (Lab) [address] [facility], [place], [address], 06/15/2024 11:09:25 06/15/19 25 06/14/2024 CMP(C OMPRE HENSI VE METAB OLIC PANEL ) blood urea nitrogen 4 mg/dL 7-[address] [facility] (Lab) [address] [place], [address], 06/15/2024 11:09:25 06/15/19 25 06/14/2024 CMP(C OMPRE HENSI VE METAB OLIC PANEL ) creatinine 0.47 mg/dL 0.60-1 [address] [facility] (Lab) [address] [place], [address], 06/15/2024 11:09:25 06/15/19 25 06/14/2024 CMP(C OMPRE HENSI VE METAB OLIC PANEL ) egfrcr (CKD-epi 2020) >90 mL/mi n/1.7 3_m2 >=[address] [facility] (Lab) [address] [place] [facility] [place], [address], 06/15/2024 11:09:25 06/15/19 25 06/14/2024 CMP(C OMPRE HENSI VE METAB OLIC PANEL ) calcium 9.1 mg/dL 8.3-[address] [facility] (Lab) [address] [place], [address], 06/15/2024 11:09:25 06/15/19 25 06/14/2024 CMP(C OMPRE HENSI VE METAB OLIC PANEL ) glucose 99 mg/dL 70-[address] [facility] (Lab) [address] [facility], [place], [address], 06/15/2024 11:09:25 06/15/19 25 06/14/2024 CMP(C OMPRE HENSI VE METAB OLIC PANEL ) protein, total 5.5 g/dL 6.4-8. [address] [facility] (Lab) [address] [facility], [place], [address], 06/15/2024 11:09:25 06/15/19 25 06/14/2024 CMP(C OMPRE HENSI VE METAB OLIC PANEL ) albumin 3.2 g/dL 3.5-5. [address] [facility] (Lab) [address] [place], [address], 06/15/2024 11:09:25 06/15/19 25 06/14/2024 CMP(C OMPRE HENSI VE METAB OLIC PANEL ) ALT 18 units /L 9-[address] [facility] (Lab) [address] [place], [address], 06/15/2024 11:09:25 06/15/19 25 06/14/2024 CMP(C OMPRE HENSI VE METAB OLIC PANEL ) alkaline phosphatase 134 units /L 34-[address] [facility] (Lab) [address] [place], [address], 06/15/2024 11:09:25 06/15/19 25 06/14/2024 CMP(C OMPRE HENSI VE METAB OLIC PANEL ) AST 12 units /L 13-[address] [facility] (Lab) [address] [facility], [place], [address], 06/15/2024 11:09:25 06/15/19 25 06/14/2024 CMP(C OMPRE HENSI VE METAB OLIC PANEL ) bilirubin, total 0.5 mg/dL 0.2-1. [address] [facility] (Lab) [address] [facility], [place], [address], 06/15/2024 11:09:25 06/15/19 25 06/14/2024 BILE ACIDS , TOTAL bile acids, total 16 umol/ L 0-10 high Test Perfo rmed by: Dionte hassan rn [facility] [facility] (Lab) [address] [facility], [place], [address], 06/15/2024 11:09:26 05/12/19 25 05/12/2024 US, obste tric, follo w-up No observ ation record ed. [email or web address] [address] [facility], [place], [address], 06/01/2024 16:31:39 05/12/19 25 05/12/2024 US, obste tric, follo w-up No observ ation record ed. [email or web address] [place] [address], [place], [address], 05/12/2024 18:35:54 06/10/19 25 06/09/2024 US, obste tric, follo w-up No observ ation record ed. [email or web address] [place] [address], [place], [address], 06/09/2024 15:32:01 06/10/19 25 06/09/2024 US, obste tric, follo w-up No observ ation record ed. [email or web address] [address], [place], [address], 06/14/2024 16:55:48 06/17/19 25 06/16/2024 non-s tress test No observ ation record ed. [email or web address] [place] [address], [place], [address], 06/16/2024 14:53:07 Result Notes None recorded. Problems Name Problem SNOMED Code Status Onset Date Resolution Date Notes Provider Name and Address Organization Details Recorded Time 43099271 Active 2023 Sandy ibarra, [facility] 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 4 13:31:34 growth restricti on 49106074 Active previous pregnacy Ashley Gilbert ibarra, [facility] 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 4 16:52:33 Palpitati ons 40695682 Active Antolin Gavin MD [address], [place], [address], [facility] 4 12:49:18 Postpartu m depressio n 42152337 Active H/O Antolin Gavin MD [address], [place], [address], [facility] 4 12:49:46 Placenta circumval remi 8717914 Active Antolin Gavin MD [address], [place], [address], [facility] 4 13:10:24 Asthma 022128139 Active Antolin Gavin MD [address], [place], [address], [facility] 5 13:06:41 Cholestas is 26040161 Active Antolin Gavin MD [address], [place], [address], [facility] 5 15:31:39 Problem Notes None recorded. Procedures Surgical History Date Name Laterality Status Provider Name and Address Organization Details Recorded Time 01/04/2024 Date of Last Pap Smear completed Leny Espinoza [facility] 02/22/2024 12:44:22 Imaging Results Imaging Date Name Status LastModified by Organiz ation Details LastModified Time 05/12/2024 US, obstetric, follow-up completed darya [address], [place], [address], 06/01/2024 16:31:39 05/12/2024 US, obstetric, follow-up completed [email or web address] [place] [address], [place], [address], 05/12/2024 18:35:54 06/09/2024 US, obstetric, follow-up completed anne [address], [place], [address], 06/09/2024 15:32:01 06/09/2024 US, obstetric, follow-up completed williams [address], [place], [address], 06/14/2024 16:55:48 06/16/2024 non-stress test completed [place] [address], [place], [address], 06/16/2024 14:53:07 Procedure Notes None recorded. Medical Equipment None Reported. Allergies Allergen ID Allergen Name Allergen Category Reaction Reaction Severity Criticality Documentation Date Start Date Code Code System Note Provider Name and Address Organization Details Recorded Time 79322 Product containin g cephalosp rebeca (product) medicatio n rash Not available Not available 01/04/2024 34276 9009 SNOMED [facility] 12:50:18 Medications Name Sig Start [...] Address Organization Details Last Updated DateTime 05/26/2024 94243.474 g 136 mm[Hg] 87 mm[Hg] [facility] 05/26/2024 11:28:38 Date Recorded Body weight Systolic blood pressure Diastolic blood pressure Provider Name and Address Organization Details Last Updated DateTime 06/09/2024 71491.6205 9 g 134 mm[Hg] 88 mm[Hg] [facility] 06/09/2024 13:29:53 Date Recorded Body weight Systolic blood pressure Diastolic blood pressure Provider Name and Address Organization Details Last Updated DateTime 06/16/2024 81095.8053 3 g 138 mm[Hg] 90 mm[Hg] [facility] 06/16/2024 15:17:05 Social History Question Answer Notes LastModified by Organizat ion Details LastModified Time What Is Your Level Of Alcohol Consumption? Occasional [email or web address] Information not available 01/04/2024 Are You Blind Or Do You Have Difficulty Seeing? No [email or web address] Information n ot available 01/04/2024 What Is Your Level Of Caffeine Consumption? Heavy [email or web address] Information not available 01/04/2024 How Much Tobacco Do You Chew? None [email or web address] Information not available 01/04/2024 In The 14 Days Before Symptom Onset, Have You Had Close Contact With A Laboratory-confirm ed COVID-19 While That Case Was Ill? No [email or web address] Information n ot available 01/04/2024 In The 14 Days Before Symptom Onset, Have You Had Close Contact With A Person Who Is Under Investigation For COVID-19 While That Person Was Ill? No [email or web address] Information not available 01/04/2024 Have You Been To An Area Known To Be High Risk For COVID-19? No [email or web address] Information not available 01/04/2024 Are You Deaf Or Do You Have Serious Difficulty Hearing? No Information not available 01/04/2024 What Type Of Diet Are You Following? REGULAR [email or web address] Information n ot available 01/04/2024 What Is The Highest Grade Or Level Of School You Have Completed Or The Highest Degree You Have Received? MH91041-2 [email or web address] Information not available 01/04/2024 What Is Your Occupation? Unemployed [email or web address] Information not available 01/04/2024 Are There Any Guns Present In Your Home? No [email or web address] Information not available 01/04/2024 Do You Use Protection During Sex? No [email or web address] Information not available 01/04/2024 Do You Use Your Seat Belt Or Car Seat Routinely? Yes Information not available 01/04/2024 Do You Have Smoke And Carbon Monoxide Detectors In Your Home? Yes Information not available 01/04/2024 How Much Tobacco Do You Smoke? No [email or web address] Information not available 01/04/2024 Do You Feel Stressed (tense, Restless, Nervous, Or Anxious, Or Unable To Sleep At Night)? [id number] [email or web address] Information not available 01/04/2024 Do You Use Any Illicit Or Recreational Drugs? No [email or web address] Information not available 01/04/2024 Do You Use Sunscreen Routinely? Yes [email or web address] Information not available 01/04/2024 Have You Used IV Drugs? No [email or web address] Information not available 01/04/2024 Sex: Unknown Functional Status Question Answer Note LastModified by Organizat ion Details LastModified Time Are you able to walk? YESWOREST [email or web address] Information not available 01/04/2024 What is your exercise level? Occasional Information not available 01/04/2024 Mental Status None recorded. Family History Relationship Description Onset Age of this Age Resolved Age Notes LastModified by Organization Details LastModified Time Unspecified Relation Family history unknown [email or web address] Not available 2023 12:50:24 Medical History Condition [...] SNOMED-CT Code Diagnosis ICD10 Code Diagnosis Note [id number] [facility] [address],[place] [address] 01/04/2024 11:49:02 01/04/2024 12:42:58 screening 250539564 Z36.82 Z3A.13 [id number] Antolin Gavin MD [place] [address],[place] [address] 01/04/2024 11:51:47 01/04/2024 13:50:17 Routine care 537380724 Z34.91 screening 2437 27434 Z36.89 Herpes simplex 44502293 B00.9 119863 Antolin Gavin MD [place] [address],[place] [address] 01/26/2024 11:20:14 01/26/2024 12:54:57 Routine care 288525402 Z34.91 115958 [facility] [address],[place] [address] 02/22/2024 10:47:23 02/22/2024 12:41:58 screening for malformation 342716086 Z36.3 Z3A.20 [id number] Antolin Gavin MD [place] [address],[place] [address] 02/22/2024 10:48:24 02/22/2024 14:35:31 Asthma 976989419 J45.909 Routine an tenatal care 755002894 Z34.91 [id number] MD Miki Cardoso [address],[place] [address] 03/21/2024 10:59:04 03/22/2024 07:01:38 Urinary symptoms 172520145 R39.9 Routine an tenatal care 213932502 Z34.91 [id number] MD Miki Cardoso [address],[place] [address] 04/18/2024 11:21:17 04/18/2024 12:33:43 Gastroesophageal reflux disease 230903578 K21.9 Routine an tenatal care 292491846 Z34.91 [id number] Antolin Gavin MD [place] [address],[place] [address] 05/05/2024 11:52:32 05/05/2024 13:08:31 Routine care 489069776 Z34.91 [id number] Yuridia Graff [place] [address],[place] [address] 05/12/2024 12:07:16 05/12/2024 14:35:35 Placenta circumvallata 5400496 O43.119 Z3A.32 [id number] Antolin Gavin MD [place] [address],[place] [address] 05/12/2024 12:07:59 05/12/2024 14:32:13 Routine care 495822976 Z34.91 [id number] Antolin Gavin MD [place] [address],[place] [address] 05/26/2024 11:03:38 05/26/2024 20:38:33 [id number] Antolin Gavin MD [place] [address],[place] [address] 05/26/2024 11:03:52 05/26/2024 12:28:27 Routine care 455673846 Z34.91 149679 Zita Clements [place] [address],[place] [address] 06/09/2024 11:00:42 06/09/2024 13:09:40 Placenta circumvallata 3180623 O43.113 Z3A.36 [id number] Antolin Gavin MD [place] [address],[place] [address] 06/09/2024 11:01:06 06/09/2024 14:50:51 Routine care 833741288 Z34.91 [id number] Shabnam Gaitan [place] [address],[place] [address] 06/16/2024 14:05:14 06/16/2024 14:55:14 growth restriction 99936703 O36.5999 915454 Antolin Gavin MD [place] [address] [address] 06/16/2024 14:05:50 06/16/2024 15:35:45 Routine care 742195227 Z34.91 Health Concerns Section Related Observation LastModified by Organization Detai ls LastModified Time None Recorded Concern Status LastModified by Organization Details LastModified Time None Recorded Advance Directives Directive None Recorded Payers Encounter Date Sequence Insurance Name Policy Number Policy Balderas Covered Member ID Balderas Member ID Guarantor Name 05/26/2024 1 [facility] ON OR AFTER 10/04/20 (MEDICAID REPLACEMENT - HMO) Nitza Jason [id number] Nitza Jason 06/09/2024 1 [facility] ON OR AFTER 10/04/20 (MEDICAID REPLACEMENT - HMO) Nitzabernadette Jason [id number] Nitzabernadette Jason 06/09/2024 1 [facility] ON OR AFTER 10/04/20 (MEDICAID REPLACEMENT - HMO) Nitzabernadette Jason [id number] Nitzabernadette Jason 06/16/2024 1 [facility] ON OR AFTER 10/04/20 (MEDICAID REPLACEMENT - HMO) Nitza Jason [id number] Nitzabernadette Jason 06/16/2024 1 [facility] ON OR AFTER 10/04/20 (MEDICAID REPLACEMENT - HMO) Nitza Jason [id number] Nitza Jason OBGyn Episode Ob Episode Information Episode Created Date Number of Fetuses Patient Bloodtype Patient rh Status Prepregnancy Weight lbs Domestic Partner Domestic Partner Phone Father Name [employer]iner[employer] 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 Pt states she was informed during L & D eval that because her BP's are normal, her PCR is likely elevated due to UTI and a 24 hr urine for total protein was not ordered. Problem Name Start Date End Date Resolution Snomed Code Not e depression 20035860 H/O growth restriction 84884571 previous pregna cy Cholestasis 22076368 Cystic fibrosis carrier detection, blood 41074377 low r isk per UNITYper pt FOb tested previous - pt will confirm Placenta circumvallata 9216957 Herpes simplex 34779332 outbr eak at 8 weeks gestation in this pregancy, patient is on supressive therapy, acyclovir 1000 Palpitations 97742271 Asthma 352044490 Carlos Calculation Initial Carlos Date Initial Exam [...] Weight in lbs Pre/Post Dialysis Refused Weight 174.698808450674 BP Diastolic BP Location Tested BP Systolic [...] She was given recommendations on exercise, diet, [id number]-[id number] medications. We reviewed her obstetric history. We reviewed her medical history. We reviewed her social history. She will begin routine care at her next visit. Normal pelvic exam today Flowsheet Date 01/26/2024 Garza Score Blood Edema Fundus Height Fundus Units Glucose Ketones Leukocytes Nitrite Labor Signs Protein Cervic Dilation Cervic Effacement Cervic Station Type Weight in lbs Pre/Post Dialysis Refused Weight 177.83177581320 BP Diastolic BP Location Tested BP Systolic [...] Type Weight in lbs Pre/Post Dialysis Refused 179.081722153770 BP Diastolic BP Location Tested BP Systolic [...] Type Weight in lbs Pre/Post Dialysis Refused 185.354769147944 BP Diastolic BP Location Tested BP Systolic [...] Type Weight in lbs Pre/Post Dialysis Refused 191.786871147631 BP Diastolic BP Location Tested BP Systolic [...] Type Weight in lbs Pre/Post Dialysis Refused 195.976828662517 BP Diastolic BP Location Tested BP Systolic [...] Type Weight in lbs Pre/Post Dialysis Refused 195.648563230266 BP Diastolic BP Location Tested BP Systolic [...] Type Weight in lbs Pre/Post Dialysis Refused 200.407586255041 BP Diastolic BP Location Tested BP Systolic [...] Type Weight in lbs Pre/Post Dialysis Refused 207.368335488076 BP Diastolic BP Location Tested BP Systolic [...] Type Weight in lbs Pre/Post Dialysis Refused 209.903576413738 BP Diastolic BP Location Tested BP Systolic [...] Domestic Partner Domestic Partner Phone Father Name [employer]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
--- OUTSIDE RECORDS SUMMARY | 2024-06-17 04:54 | XMS_ITS | Referral Summary ---
Author Organization [facility] Address [address] [place] [address] Care Team Providers Care Jig Builder Name Role Phone Unavailable Primary Care Provider Unavailabl e Source Comments [facility],non-owned Affiliates and Associated Physician Practices is amultiple site organization consisting of ambulatory clinics and hospital sitesin [place], [place], [place] and [place]. This disclosure is being madepursuant to the Care Everywhere program and may not contain all information available regarding this patient. Last updated 17.[facility] Allergies Active Allergy Reactions Criticality Noted Date [...] on file NITZA JASON Personal/Family [address] [place] [id number] Nitza Jason Personal/Family Self [address] [place] [address]
[2024-06-17 05:26] LABS: Basophils Percent Auto 0.3 % (0.2-1.2); Eosinophils Absolute Auto 0.1 K/mm3 (0-0.3); Eosinophils Percent Auto 1.2 % (0-4.4); Hematocrit 34.4 % (37.0-47.0); Hemoglobin 11.6 g/dL (12.0-15.0); Immature Granulocyte Absolute 0.13 K/mm3 (0.00-0.031); Immature Granulocyte Percent A 1.1 % (0-0.5); Lymphocytes Absolute Auto 2.84 K/mm3 (0.9-3.2); Lymphocytes Percent Auto 23.9 % (18.3-44.2); Mean Corpuscular HGB Conc 33.7 g/dl (32-36); Mean Corpuscular Hemoglobin 32.9 pg (26-34); Mean Corpuscular Volume 97.5 fl (80-100); Mean Platelet Volume 9.7 fl (7.4-10.4); Monocytes Absolute Auto 0.8 K/mm3 (0.1-0.6); Monocytes Percent Auto 6.3 % (2.6-8.5); Neutrophils Percent Auto 67.2 % (45.5-73.1); Platelet Count Result 339 k/mm3 (150-375); Red Blood Count 3.53 M/mm3 (4.2-5.4); Red Cell Distribution Width 13.6 % (11.5-14.5); White Blood Count 11.9 K/mm3 (4.5-10.0)
--- NOTE | 2024-06-17 05:40 | LDADM ---
This patient, Nitza Jason, was admitted to Labor/Delivery/Recovery 103 on 06/17/24 at 04:47. Plans for labor, pain management and were discussed with patient. Patient/family oriented to hospital policies and general routines including ID bracelet, bed and alarms, visiting hours, pain management, procedures, bathroom and other care routines, personal items, smoking policy, room service/diet and guest tray routines, security routines, and visiting hours. Patient/Family are encouraged to report perceived risks to care and to ask questions if they do not understand what they are told or what they should do. See OBIX for further documentation.
[2024-06-17] MEDS: AMPICILLIN 2 GM/NS 100 ML 2 GM/100 ML BAG IVPB (05:54)
[2024-06-17] MEDS: LACTATED RINGERS 1,000 ML 125 ML IV CONT ×3 (05:54→23:58)
[2024-06-17] MEDS: OXYTOCIN 30 UNITS/NS 500 ML 30 UNITS/500 ML BAG IV CONT (05:55)
[2024-06-17 06:09] LABS: Syphilis IgG/IgM Antibody Negative (Negative)
[2024-06-17 06:18] LABS: HIV 1/2 Ab P24 Ag Result Negative (Negative)
--- NOTE | 2024-06-17 06:27 | P.PNAN_ITS ---
Anes - Eval Pre Procedure Procedure: Labor epidural Date/Time: 06/17/24 06:27 Surgeon: Leslye Preop Diagnosis: Abdominal pain with contractions Pre Op Diagnosis: IOL Patient Data Age: 23 Gender: F Height: 1.65 m Weight: 95 kg Last Vital Signs Temp 97.4 F L 06/17/24 05:15 Pulse 97 06/17/24 06:00 BP 132/85 06/17/24 06:00 O2 Del Method Room Air 06/17/24 05:40 Allergies Allergy/AdvReac Type Severity Reaction Status Date / Time ceftriaxone (From Rocephin) Allergy Rash Verified 06/17/24 05:50 Cephalosporins Allergy Rash Verified 06/17/24 05:50 Home Medications ?Medication ?Instructions ?Recorded ?Confirmed ?Type ferrous sulfate 325 mg (65 mg 325 mg PO DAILY 06/15/24 06/17/24 History iron) tablet (FeroSul) omeprazole 40 mg capsule,delayed 40 mg PO QHS 06/15/24 06/17/24 History release vit no.95-ferrous 1 tablet PO DAILY 06/15/24 06/15/24 History fumarate 28 mg-folic acid 800 mcg tablet () valacyclovir 1 gram tablet 1,000 mg PO BID 06/15/24 06/17/24 History Laboratory Tests 06/17/24 05:02 WBC 11.9 H K/mm3 (4.5-10.0) RBC 3.53 L M/mm3 (4.2-5.4) Hgb 11.6 L g/dL (12.0-15.0) Hct 34.4 L % (37.0-47.0) MCV 97.5 fl (80-100) MCH 32.9 pg (26-34) MCHC 33.7 g/dl (32-36) RDW 13.6 % (11.5-14.5) Plt Count 339 k/mm3 (150-375) MPV 9.7 fl (7.4-10.4) Immature Gran % (Auto) 1.1 H % (0-0.5) Neut % (Auto) 67.2 % (45.5-73.1) Lymph % (Auto) 23.9 % (18.3-44.2) [place] % (Auto) 6.3 % (2.6-8.5) Eos % (Auto) 1.2 % (0-4.4) Baso % (Auto) 0.3 % (0.2-1.2) Lymph # (Auto) 2.84 K/mm3 (0.9-3.2) [place] # (Auto) 0.8 H K/mm3 (0.1-0.6) Eos # (Auto) 0.1 K/mm3 (0-0.3) Baso # (Auto) 0.0 K/mm3 (0.0-0.1) Abs Immat Gran (auto) 0.13 H K/mm3 (0.00-0.031) Absolute Neuts (auto) 8.0 H K/mm3 (1.3-6.7) Absolute Nucleated RBC 0.000 K/mm3 (0.0-0.012) Nucleated RBC % 0.0 % (0.0-0.2) Syphilis IgG/IgM Ab Negative (Negative) HIV 1&2 Ab/P24 Ag 4thGn Negative (Negative) Blood Type O Negative Antibody Screen Negative : gestational age HCG: positive Patient hx anesthesia problems: none Family hx anesthesia problems: none Results Review: All pre-operative results and documents have been reviewed as part of the pre- operative evaluation. [facility] Past Medical History Medical History GERD (gastroesophageal reflux disease) Obesity and not yet delivered Healthy female adult Surgical History Surgical History No pertinent past surgical history Family History Family History Other Unknown family medical history Social History Social History Smoking status: Never smoker Second hand tobacco smoke exposure: No Substance use: never Do You Feel Safe in your Home?: No Lack of Transportation: No Lack of Food: Never True Current Housing: I Have Housing Concerned About Future Housing: No Difficulty Paying Gas/Electric Bills: No Difficulty Paying for Meds: No Currently Unemployed: YES Education: Associate Degree Difficulty w/ Childcare or Family Care: No Gender identity (if verbalized by the patient): Female Spiritual care concerns: No Exam Day of Procedure 06/17/24 06:27 Patient weight: obese
[2024-06-17] MEDS: miSOPROStol 25 MCG TABLET 50 MCG BUCCAL (08:01)
--- NOTE | 2024-06-17 08:36 | WPDHPUPDATE1 ---
History and Physical Update Update Date/Time: 06/17/24 08:36 23-year-old multiparous female at 37 weeks gestation with cholestasis and preeclampsia. She she is here for induction. Active management of induction has been initiated. Cytotec with artificial rupture membranes and Pitocin to follow-up. She has reassuring status. History and Physical has been reviewed, including an updated exam of the patient. There are NO changes in the patient's condition. Risks, benefits, and alternatives have been discussed and questions answered. Patient agrees to proceed with procedure.
[2024-06-17] MEDS: AMPICILLIN 1 GM/NS 50 ML 1 GM/50 ML BAG IVPB ×4 (10:10→21:50)
--- NOTE | 2024-06-17 12:39 | P.PNOB_ITS ---
OB - PN: Subj Subjective Date/time seen: 06/17/24 12:39 Artificial rupture membranes-clear fluid. 2 cm, 80%, -3 OB - PN: Obj Data Labs 06/17/24 05:02 Labs: Laboratory Results - last 24 hr 06/17/24 05:02 WBC 11.9 H RBC 3.53 L Hgb 11.6 L Hct 34.4 L MCV 97.5 MCH 32.9 MCHC 33.7 RDW 13.6 Plt Count 339 MPV 9.7 Immature Gran % (Auto) 1.1 H Neut % (Auto) 67.2 Lymph % (Auto) 23.9 [place] % (Auto) 6.3 Eos % (Auto) 1.2 Baso % (Auto) 0.3 Lymph # (Auto) 2.84 [place] # (Auto) 0.8 H Eos # (Auto) 0.1 Baso # (Auto) 0.0 Abs Immat Gran (auto) 0.13 H Absolute Neuts (auto) 8.0 H Absolute Nucleated RBC 0.000 Nucleated RBC % 0.0 Syphilis IgG/IgM Ab Negative HIV 1&2 Ab/P24 Ag 4thGn Negative Blood Type O Negative Antibody Screen Negative OB - PN A/P Time Spent With Patient Time: Total time spent is greater than 50% in coordination of care (as documented) at patient's floor/unit and/or counseling patient:
[2024-06-17] MEDS: fentaNYL CITRATE INJ (*CRX) 100 MCG/2 ML VIAL 50 MCG IV PUSH (16:47)
[2024-06-17] MEDS: fentaNYL CITRATE INJ (*CRX) 100 MCG/2 ML VIAL IV PUSH ×2 (20:39→22:56)
[2024-06-17] MEDS: valACYclovir HCL 500 MG TABLET 1000 MG PO (21:43)
[2024-06-18] VITALS (58 sets, daily range): BP systolic 108–160; BP diastolic 70–108; PULSE 83–141; RESP 16–18; TEMP 36.3–36.9; O2SAT 93–100
[2024-06-18] MEDS: fentaNYL CITRATE INJ (*CRX) 100 MCG/2 ML VIAL IV PUSH
--- NOTE | 2024-06-18 02:30 | PM.OBPRVD ---
OB - Vaginal Delivery Note Procedure Delivery date: 06/18/24 Events: Preeclampsia w/o severe features and Other (cholestasis) Induction method: AROM and Per Pitocin Protocol Delivery monitor: External FHT and Internal FHT Route of delivery: Episiotomy description: None Laceration Description: None Quantitative Blood Loss (ml): 100 Anesthesia type: Epidural Complications: No immediate complications
[2024-06-18] MEDS: OXYTOCIN 30 UNITS/NS 500 ML 30 UNITS/500 ML BAG 125 UNITS IV CONT (02:47)
[2024-06-18] MEDS: diphenhydrAMINE HCl INJ 50 MG/ML VIAL 25 MG IV PUSH (03:33)
[2024-06-18] MEDS: WITCH HAZEL 40 PADS 1 PAD TOPICAL (03:33)
[2024-06-18] MEDS: BENZOCAINE 20% AER SPR (*SP) 56 GM CAN 1 SPRAY TOPICAL (03:33)
--- NOTE | 2024-06-18 04:36 | OBPPTRN ---
Patient transferred to post room #282 via w/c. Support person present. Oriented to unit, room, information board, rooming in, admission packet and security measures. Patient verbalizes understanding.
[2024-06-18] MEDS: PANTOPRAZOLE 40 MG TABLET PO ×2 (07:45→21:01)
[2024-06-18] MEDS: MULTIVIT/MIN/PREN/FOL AC/IRON TABLET 1 TAB PO (07:45)
[2024-06-18] MEDS: FERROUS SULFATE 325 MG TABLET DR BY MOUTH (07:45)
[2024-06-18] MEDS: valACYclovir HCL 500 MG TABLET 1000 MG PO ×2 (07:46→21:02)
--- NOTE | 2024-06-18 09:30 | PC.NURSE ---
0800: Introductions were made, communication board updated. Mother states that she is unable to wake for feeding. Upon entering room, infant was swaddled and being held by mother. is easy to arouse, but once placed to mothers breast, fell back to sleep. Educated mother on methods to wake infant when sleepy. undressed and placed skin to skin with mother. 0905: Checked in with mother to assess if feeding was completed. Mother states that remained sleeping. Upon entering room, was swaddled and next to her in the crib. undressed and placed to mothers breast in football position. Infant was able to latch on the right breast in football position. Maximum assistance provided.
[2024-06-18] MEDS: IBUPROFEN 600 MG TABLET PO (10:00)
--- NOTE | 2024-06-18 10:24 | PC.NURSE ---
0810: Introductions were made, communication board updated. Patient would like assistance with setting up and using her personal breast pump (Motif). Nipples measured at 19mm. For her motif pump, she will be in a size 21mm flange. Instructions given on cleaning, care, usage, that there should be no pain, pumping schedule for milk production, collection, and storage of human milk. Patient was assessed for correct placement, flange size, to pump for comfort and nipple stretching/stimulation for adequate milk production every 3 hours (8 times in 24 hours) 1-2 times at night. Reported to the Primary RN.
[2024-06-19] MEDS: IBUPROFEN 600 MG TABLET PO (01:19)
[2024-06-19] MEDS: ACETAMINOPHEN 325 MG TABLET 650 MG PO ×2 (01:19→06:52)
[2024-06-19 05:42] LABS: Hematocrit 33.1 % (37.0-47.0); Hemoglobin 10.8 g/dL (12.0-15.0)
[2024-06-19 06:50] VITALS: BP 140/82; PULSE 82; RESP 16; TEMP 36.4
[2024-06-19] MEDS: valACYclovir HCL 500 MG TABLET 1000 MG PO ×2 (06:52→21:00)
[2024-06-19] MEDS: PANTOPRAZOLE 40 MG TABLET PO ×2 (06:52→21:00)
--- NOTE | 2024-06-19 10:35 | P.PNOB_ITS ---
OB - PN: Subj Subjective Date/time seen: 06/19/24 10:35 Patient comments: no complaints, pain well controlled, incisional pain, tolerating diet and flatus present OB - PN: Obj Data Labs 06/19/24 05:25 Labs: Laboratory Results - last 24 hr 06/19/24 05:25 Hgb 10.8 L Hct 33.1 L OB - PN A/P Plan day: 1 Plan: routine care Comments: No problems, routine care Time Spent With Patient Time: Total time spent is greater than 50% in coordination of care (as documented) at patient's floor/unit and/or counseling patient: Exam 2 Const: General: comfortable, no acute distress and alert Resp: Effort & Inspection: normal respiratory effort Auscultation: no crackles, no rales and no rhonchi Cardio: Rate: regular rate Heart sounds: no click, no murmurs and no rubs GI: Inspection: non-distended GI Palp: No Tenderness to palpation present (GI) Auscultation: normal bowel sounds Other: Incision - CDI Extrem: General: normal to inspection, no pedal edema and no calf tenderness
--- NOTE | 2024-06-19 10:36 | P.PNOB_ITS ---
OB - PN: Subj Subjective Date/time seen: 06/19/24 10:36 Patient comments: no complaints, pain well controlled, incisional pain, tolerating diet and flatus present OB - PN: Obj Data Labs 06/19/24 05:25 Labs: Laboratory Results - last 24 hr 06/19/24 05:25 Hgb 10.8 L Hct 33.1 L OB - PN A/P Plan day: 1 Plan: routine care Comments: No problems, routine care Time Spent With Patient Time: Total time spent is greater than 50% in coordination of care (as documented) at patient's floor/unit and/or counseling patient: Exam 2 Const: General: comfortable, no acute distress and alert Resp: Effort & Inspection: normal respiratory effort Auscultation: no crackles, no rales and no rhonchi Cardio: Rate: regular rate Heart sounds: no click, no murmurs and no rubs GI: Inspection: non-distended GI Palp: No Tenderness to palpation present (GI) Auscultation: normal bowel sounds Other: Incision - CDI Extrem: General: normal to inspection, no pedal edema and no calf tenderness
--- NOTE | 2024-06-19 11:56 | WPDANLDPN2 ---
Anes-Prog Note L&D Date/Time: 06/19/24 11:56 Comfortable throughout: labor and delivery Neuraxial method: epidural Epidural/Spinal procedure site: clean & non-tender Neuro status: Neuro function grossly intact. Cardiovascular status: normal Respiratory status: normal Airway patency: baseline Mental status: baseline Post-Op hydration status: normal Vital Signs: Last Vital Signs Temp 36.4 C 06/19/24 06:50 Pulse 82 06/19/24 06:50 Resp 16 06/19/24 06:50 BP 140/82 06/19/24 06:50 Pulse Ox 99 06/18/24 23:55 O2 Del Method Room Air 06/18/24 04:50 Pain score (VAS): 2 I/O: Intake & Output 06/18/24 06/19/24 06/19/24 23:59 07:59 15:59 Intake Total 1240 1450 Output Total 1300 1450 Balance -60 0 Post-procedural complaints: none Patient feedback: Patient satisfied with anesthetic care.
[2024-06-19 12:00] VITALS: BP 138/87; PULSE 80; RESP 16; TEMP 36.7
[2024-06-19 17:00] VITALS: BP 144/97; PULSE 91; RESP 16; TEMP 36.6
[2024-06-19 19:35] VITALS: BP 150/91; PULSE 97; RESP 16; TEMP 36.4
[2024-06-19 23:55] VITALS: BP 144/92; PULSE 68; RESP 16; TEMP 36.5
[2024-06-20] MEDS: ACETAMINOPHEN 325 MG TABLET 650 MG PO (02:39)
[2024-06-20] MEDS: IBUPROFEN 600 MG TABLET PO (02:39)
[2024-06-20] MEDS: valACYclovir HCL 500 MG TABLET 1000 MG PO (07:36)
[2024-06-20] MEDS: FERROUS SULFATE 325 MG TABLET DR BY MOUTH (07:37)
--- NOTE | 2024-06-20 07:55 | PC.NURSE ---
Patient viewed the discharge video Mother & Baby Care, The First Two Weeks. Patient was given the opportunity and encouraged to ask questions. Patient verbalized understanding of information shared and has been given the mother/baby guide for home reference.
--- NOTE | 2024-06-20 08:26 | P.PNOB_ITS ---
OB - PN: Subj Subjective Date/time seen: 06/20/24 08:26 Patient comments: no complaints, pain well controlled and tolerating diet OB - PN: Obj Data Labs 06/19/24 05:25 OB - PN A/P Plan day: 2 Plan: routine care and discharge home Time Spent With Patient Time: Total time spent is greater than 50% in coordination of care (as documented) at patient's floor/unit and/or counseling patient: Exam 2 Const: General: comfortable and no acute distress Resp: Effort & Inspection: normal respiratory effort Auscultation: no rales, no rhonchi and no wheezes Cardio: Rate: regular rate Heart sounds: no click, no murmurs and no rubs GI: GI Palp: Yes Soft to palpation and No Tenderness to palpation present (GI) Auscultation: normal bowel sounds Extrem: General: normal to inspection, no pedal edema and no calf tenderness
--- NOTE | 2024-06-20 08:27 | P.DS_ITS ---
DS: Admitting Diagnosis Discharge Date 06/20/2024 Admitting Diagnosis term DS: Discharge Diagnosis Discharge Diagnosis (1) Post term , delivered: Code(s): O48.0 - Post-term Status: Acute OB - DS: Summary OB Procedures : None OB Procedures Intrapartum: Spontaneous Vag Delivery OB Procedures: : None Peripartum Data Laceration Description: None Episiotomy description: None Time Spent with Patient Time attestation: Total time spent providing and/or coordinating discharge services: Discharge Plan Discharge Discharging Clinician: Antolin Gavin Activity: pelvic rest Diet: regular Patient Language: Croatian Discharge Medications: Continued PNV cmb#95-ferrous fumarate-FA [] 28 mg iron- 800 mcg tablet 1 tablet PO DAILY ferrous sulfate [FeroSul] 325 mg (65 mg iron) tablet 325 mg PO DAILY omeprazole 40 mg capsule,delayed release(DR/EC) 40 mg PO QHS valacyclovir 1 gram tablet 1,000 mg PO BID Date of admission: 06/17/24 04:47 Primary Care Provider: UNKNOWN,DOCTOR Admitting Provider: Antolin Gavin Attending physician on admission: Antolin Gavin Condition: Stable
[2024-06-20 08:35] VITALS: BP 146/96; PULSE 68; RESP 17; TEMP 36.6; O2SAT 99
[2024-06-20 11:35] VITALS: BP 133/95; PULSE 102
[2024-06-22 11:49] VITALS: BP 130/79; PULSE 90; RESP 18; TEMP 36.5; O2SAT 98
== END 2024-06-20 12:25 | disposition home or self-care (01) | DRG 560 ==
LOC: ANHLDR 04:52 → ANHOB2 06-18 05:37
PROVIDERS: Admitting Provider Obstetrics & Gynecology; Visit Provider Obstetrics & Gynecology
DX: O14.94 Unspecified pre-eclampsia, complicating childbirth (principal); Z37.0 Single live birth; Z3A.37 37 weeks gestation of pregnancy; O99.824 Streptococcus B carrier state complicating childbirth; O69.81X0 Labor and delivery complicated by cord around neck, without compression, not applicable or unspecified
CPT/HCPCS: 36415; 85014; 85018; 85025; 86593; 86703; 86850; 86900; 86901; A9270; G0432; J0290; J1200; J2590; J2795; J3010; J7120